=== PATIENT | male | born 1945 | race Caucasian/White ===

== ENCOUNTER 2017-08-06 19:42 | Observation (INO) | payer OTHER ==
[~2017-08-06] VITALS: Ht 185.4 cm; Wt 62.4 kg
[~2017-08-06 19:42] MED LIST: ALPR1TAB2 PO; AMIT50TA3 PO; BUPR300T54 PO; FENT-77 TD; HYDR-4064 PO; LOSA100T29 PO; TAMS0.4C32 PO
[2017-08-06] MEDS ORDERED: MEROPENEM 1 GM VIAL ONE (19:59)
[2017-08-06] MEDS ORDERED: DEXAMETHASONE SOD PHOSPHATE 10MG/ML 1ML VIAL ONE (20:00)
[2017-08-06] MEDS ORDERED: SODIUM CHLORIDE 0.9% 500ML 500 ML IV ONE (20:00)
[2017-08-06] MEDS ORDERED: IPRATROPIUM/ALBUTEROL SULFATE 3 ML SOLUTION IH ONE (20:30)
[2017-08-06 20:31] LABS: BASOPHILS % (AUTO) 0.8 % (0.0-5.0); EOSINOPHILS % (AUTO) 3.4 % (0.0-8.0); HEMATOCRIT 35.3 % (42-54); LYMPHOCYTES % (AUTO) 9.5 % (21.0-51.0); MEAN CORPUSCULAR HEMOGLOBIN 30.3 pg (27.0-33.0); MEAN CORPUSCULAR HGB CONC 34.5 g/dL (32.0-36.0); MEAN CORPUSCULAR VOLUME 87.7 fL (79-99); MONOCYTES % (AUTO) 5.4 % (3.0-13.0); NEUTROPHILS % (AUTO) 80.9 % (40.0-77.0); PLATELET COUNT (AUTO) 202 K/uL (130-400); RED BLOOD CELL COUNT(AUTO) 4.02 MIL/uL (4.50-6.20); WHITE BLOOD COUNT (AUTO) 10.7 K/uL (4.8-10.8)
[2017-08-06 20:40] LABS: CARBON DIOXIDE 30 mmol/L (21-32); CHLORIDE 104 mmol/L (101-111); CREATININE 1.4 mg/dL (0.5-1.5); GLOMERULAR FILTR. RATE CALC 53 mL/min (>60); GLUCOSE,RANDOM 115 mg/dL (70-105); SODIUM SERUM 141 mmol/L (136-145); UREA NITROGEN, BLOOD 15 mg/dL (7-18)
[2017-08-06 20:50] LABS: INR 0.95 (0.85-1.15); PARTIAL THROMBOPLASTIN TIME 27.8 SEC (26.3-35.5)
[2017-08-06 20:55] LABS: ALANINE AMINOTRANSFERASE 15 U/L (12-78); ALBUMIN 3.3 g/dL (3.5-5.0); ASPARTATE AMINOTRANSFERASE 11 U/L (10-37); BILIRUBIN,TOTAL 0.7 mg/dL (0.2-1.0); CREATINE KINASE MB < 0.5 ng/mL (0.5-3.6); CREATINE KINASE, TOTAL 31 U/L (21-232); MYOGLOBIN 52 ng/mL (10-92); TOTAL PROTEIN, SERUM 6.6 g/dL (6.0-8.3); TROPONIN I < 0.04 ng/mL (0.00-0.06)
[2017-08-06 21:30] LABS: APPEARANCE,URINE Clear (CLEAR); BILIRUBIN,URINE Negative (NEGATIVE); COLOR,URINE Yellow (YELLOW); GLUCOSE, URINE (UA) Negative (NEGATIVE); KETONES,URINE Trace mg/dL (NEGATIVE); LEUKOCYTE ESTERASE ,URINE Negative (NEGATIVE); NITRATE,URINE Negative (NEGATIVE); OCCULT BLOOD,URINE Negative (NEGATIVE); PH,URINE 6.5 (5.0-8.0); PROTEIN,URINE Negative (NEGATIVE)
[2017-08-06 21:45] LABS: BACTERIA,URINE Rare /HPF (None Seen); RBC,URINE 0-1 /HPF (0-1); SQUAMOUS EPITHELIAL CELL,UR Rare /LPF (0-2); WBC,URINE 0-1 /HPF (0-1)
[2017-08-06] MEDS ORDERED: METHYLPREDNISOLONE SOD SUCC 40MG/ML 1ML ONE (23:36)
[2017-08-06] MEDS ORDERED: LEVOFLOXACIN 500 MG/D5W 100 ML 100 ML ONE (23:36)
[2017-08-07] MEDS ORDERED: POTASSIUM CHLORIDE 20MEQ/100ML 100 ML IV PRN ×2 (01:45→07:15)
[2017-08-07] MEDS ORDERED: ACETAMINOPHEN 325 MG TAB PO PRN ×3 (01:45→07:15)
[2017-08-07] MEDS ORDERED: ONDANSETRON HCL 4 MG/2 ML VIAL IVP PRN (01:45)
[2017-08-07] MEDS ORDERED: POTASSIUM CHLORIDE 10% ELIXIR 20 MEQ/15 ML UDCUP PO PRN ×2 (01:45→07:15)
[2017-08-07] MEDS ORDERED: LIDOCAINE HCL-MPF 1% 2ML VIAL IVP PRN (01:45)
[2017-08-07] MEDS ORDERED: POTASSIUM CHLORIDE 20 MEQ ERTAB PO PRN ×2 (01:45→07:15)
[2017-08-07] MEDS ORDERED: HYDRALAZINE HCL 20 MG/ML VIAL IV PRN (01:45)
[2017-08-07] MEDS: LEVOFLOXACIN 500 MG/D5W 100 ML 100 ML IV SCH (01:45)
[2017-08-07] MEDS ORDERED: LACTULOSE 20 GM/30 ML UDCUP PO PRN (01:45)
[2017-08-07] MEDS ORDERED: CLONIDINE HCL 0.1 MG TABLET PO PRN ×2 (01:45→07:15)
[2017-08-07 05:58] LABS: BASOPHILS % (AUTO) 0.2 % (0.0-5.0); HEMATOCRIT 35.9 % (42-54); LYMPHOCYTES % (AUTO) 11.1 % (21.0-51.0); MEAN CORPUSCULAR HEMOGLOBIN 29.2 pg (27.0-33.0); MEAN CORPUSCULAR HGB CONC 33.4 g/dL (32.0-36.0); MEAN CORPUSCULAR VOLUME 87.4 fL (79-99); MONOCYTES % (AUTO) 1.1 % (3.0-13.0); NEUTROPHILS % (AUTO) 87.6 % (40.0-77.0); PLATELET COUNT (AUTO) 197 K/uL (130-400); RED BLOOD CELL COUNT(AUTO) 4.11 MIL/uL (4.50-6.20); RED CELL DISTRIBUTION WIDTH 14.7 % (11.0-15.5)
[2017-08-07 06:04] LABS: CREATININE 1.3 mg/dL (0.5-1.5); POTASSIUM 4.6 mmol/L (3.5-5.1)
[2017-08-07] MEDS ORDERED: LIDOCAINE HCL-MPF 1% 2ML VIAL IJ PRN (07:15)
[2017-08-07] MEDS ORDERED: GUAIFENESIN-DM 200/20 MG 10 ML PO PRN (07:15)
[2017-08-07] MEDS ORDERED: SODIUM CHLORIDE 0.9% 10 ML VIAL IVP PRN (07:30)
[2017-08-07 09:30] VITALS: BP 90/56
[2017-08-07] MEDS: IPRATROPIUM/ALBUTEROL SULFATE 3 ML SOLUTION IH SCH ×3 (09:37→21:59)
[2017-08-07] MEDS: FAMOTIDINE 20MG TAB 20 MG TAB PO SCH ×2 (10:32→21:00)
[2017-08-07] MEDS: METHYLPREDNISOLONE SOD SUCC 125MG/2ML VIAL IVP SCH ×2 (10:32→20:58)
[2017-08-07 11:00] VITALS: BP 104/56
[2017-08-07] MEDS ORDERED: FENTANYL 50 MCG/HR PATCH TD SCH (14:45)
[2017-08-07] MEDS ORDERED: ALPRAZOLAM 1 MG TAB PO PRN (14:45)
[2017-08-07] MEDS ORDERED: HYDROCODONE/ACETAMINOPHEN 10/325 MG TAB PO PRN (14:45)
[2017-08-07] MEDS ORDERED: BENZONATATE 100 MG CAPSULE PO PRN (14:45)
[2017-08-07] MEDS ORDERED: HYDR-4068 PO (15:03)
[2017-08-07] MEDS ORDERED: THEO400T3 PO (15:03)
[2017-08-07] MEDS ORDERED: BENZ200C53 PO (15:03)
[2017-08-07] MEDS ORDERED: METO25TA6 PO (15:03)
[2017-08-07] MEDS ORDERED: IPRATROPIUM (15:11)
[2017-08-07] MEDS ORDERED: ALBUTEROL (15:11)
[2017-08-07 16:00] VITALS: BP 94/53
[2017-08-07 19:59] VITALS: BP 116/59
[2017-08-07] MEDS ORDERED: AMITRIPTYLINE HCL 25 MG TABLET PO SCH (21:00)
[2017-08-07] MEDS ORDERED: THEOPHYLLINE ANHYDROUS 400 MG PO SCH (21:00)
[2017-08-07] MEDS ORDERED: BUPROPION HCL 150 MG TABLET.SA PO SCH (21:00)
[2017-08-07] MEDS ORDERED: TAMSULOSIN HCL 0.4 MG CAP.ER.24H PO SCH (21:00)
[2017-08-07] MEDS: METOPROLOL TARTRATE 25 MG TAB PO SCH (21:00)
[2017-08-07 23:37] VITALS: BP 105/63
[2017-08-08] MEDS: LEVOFLOXACIN 500 MG/D5W 100 ML 100 ML IV SCH ×2 (01:30→10:39)
[2017-08-08] MEDS: IPRATROPIUM/ALBUTEROL SULFATE 3 ML SOLUTION IH SCH ×3 (02:39→10:32)
[2017-08-08 04:00] VITALS: BP 101/63
[2017-08-08 05:09] LABS: HEMATOCRIT 32.5 % (42-54); LYMPHOCYTES % (AUTO) 6.9 % (21.0-51.0); MEAN CORPUSCULAR HEMOGLOBIN 29.4 pg (27.0-33.0); MEAN CORPUSCULAR HGB CONC 33.8 g/dL (32.0-36.0); MEAN CORPUSCULAR VOLUME 86.8 fL (79-99); MONOCYTES % (AUTO) 2.4 % (3.0-13.0); NEUTROPHILS % (AUTO) 90.7 % (40.0-77.0); PLATELET COUNT (AUTO) 223 K/uL (130-400); RED BLOOD CELL COUNT(AUTO) 3.74 MIL/uL (4.50-6.20); RED CELL DISTRIBUTION WIDTH 14.7 % (11.0-15.5); WHITE BLOOD COUNT (AUTO) 11.9 K/uL (4.8-10.8)
[2017-08-08 05:23] LABS: CREATININE 1.3 mg/dL (0.5-1.5); POTASSIUM 3.7 mmol/L (3.5-5.1)
[2017-08-08 08:00] VITALS: BP 119/72
[2017-08-08] MEDS: METHYLPREDNISOLONE SOD SUCC 125MG/2ML VIAL IVP SCH (09:00)
[2017-08-08] MEDS ORDERED: LOSARTAN 100 MG TABLET PO SCH (09:00)
[2017-08-08] MEDS: METOPROLOL TARTRATE 25 MG TAB PO SCH (10:42)
[2017-08-08] MEDS: FAMOTIDINE 20MG TAB 20 MG TAB PO SCH (10:42)
== END 2017-08-08 12:04 | disposition home or self-care (01) ==
LOC: EDH 19:42 → EDHIP 21:55 → 4CH 08-07 08:10
PROVIDERS: ADMIT Family Medicine; ATTEND Family Medicine
DX: J44.1 Chronic obstructive pulmonary disease with (acute) exacerbation (principal); G89.29 Other chronic pain; I10 Essential (primary) hypertension; I25.10 Atherosclerotic heart disease of native coronary artery without angina pectoris; F41.9 Anxiety disorder, unspecified; M19.90 Unspecified osteoarthritis, unspecified site; J96.01 Acute respiratory failure with hypoxia; F10.20 Alcohol dependence, uncomplicated; Z87.891 Personal history of nicotine dependence; J47.9 Bronchiectasis, uncomplicated; M54.9 Dorsalgia, unspecified
CPT/HCPCS: 36415 ×3; 71250; 80048 ×2; 80053; 81001; 82550; 82553; 83605; 83874; 84484; 85025 ×3; 85610; 85730; 87040; 87088; 87804 ×2; 93005; 94640 ×6; 94664; 96365; 96375; 96376; 99285; G0378 ×38; J1100; J1956 ×2; J2185; J2920; J2930 ×3; J7040

== ENCOUNTER 2017-08-23 18:15 | Emergency (ER) | payer OTHER ==
[~2017-08-23 18:15] MED LIST changes: +ALBUTEROL; +BENZ200C53 PO; -HYDR-4064 PO; +HYDR-4068 PO; +IPRATROPIUM; +METO25TA6 PO; +THEO400T3 PO
[2017-08-23 18:51] LABS: BASOPHILS % (AUTO) 0.9 % (0.0-5.0); EOSINOPHILS % (AUTO) 3.5 % (0.0-8.0); HEMATOCRIT 33.6 % (42-54); MEAN CORPUSCULAR HEMOGLOBIN 29.7 pg (27.0-33.0); MEAN CORPUSCULAR HGB CONC 33.6 g/dL (32.0-36.0); MEAN CORPUSCULAR VOLUME 88.4 fL (79-99); MONOCYTES % (AUTO) 8.7 % (3.0-13.0); NEUTROPHILS % (AUTO) 63.9 % (40.0-77.0); PLATELET COUNT (AUTO) 228 K/uL (130-400); RED CELL DISTRIBUTION WIDTH 15.3 % (11.0-15.5)
[2017-08-23 19:05] LABS: CREATININE 1.1 mg/dL (0.5-1.5); POTASSIUM 4.3 mmol/L (3.5-5.1)
[2017-08-23 19:10] LABS: ALBUMIN 2.6 g/dL (3.5-5.0); B-TYPE NATRIURETIC PEPTIDE 23 pg/mL (0-100); BILIRUBIN,TOTAL 0.3 mg/dL (0.2-1.0); TOTAL PROTEIN, SERUM 5.9 g/dL (6.0-8.3)
[2017-08-23 19:24] LABS: INR 0.91 (0.85-1.15); PARTIAL THROMBOPLASTIN TIME 27.8 SEC (26.3-35.5); PROTHROMBIN TIME 9.6 SEC (9.6-11.6)
[2017-08-23 20:03] LABS: APPEARANCE,URINE Clear (CLEAR); BILIRUBIN,URINE Negative (NEGATIVE); COLOR,URINE Yellow (YELLOW); GLUCOSE, URINE (UA) Negative (NEGATIVE); KETONES,URINE Negative (NEGATIVE); LEUKOCYTE ESTERASE ,URINE Small (NEGATIVE); NITRATE,URINE Negative (NEGATIVE); OCCULT BLOOD,URINE Negative (NEGATIVE); PH,URINE 5.5 (5.0-8.0); PROTEIN,URINE Negative (NEGATIVE); UROBILINOGEN,URINE 0.2 mg/dL (0.2-1.0)
[2017-08-23 20:12] LABS: BACTERIA,URINE None Seen /HPF (None Seen); RBC,URINE None Seen /HPF (0-1); SQUAMOUS EPITHELIAL CELL,UR 0-2 /LPF (0-2)
== END 2017-08-23 20:57 | disposition home or self-care (01) ==
LOC: EDH 18:15
DX: K59.00 Constipation, unspecified (principal); J44.9 Chronic obstructive pulmonary disease, unspecified; I10 Essential (primary) hypertension; I25.10 Atherosclerotic heart disease of native coronary artery without angina pectoris; Z88.6 Allergy status to analgesic agent; Z88.4 Allergy status to anesthetic agent; Z79.899 Other long term (current) drug therapy; Z87.891 Personal history of nicotine dependence
CPT/HCPCS: 36415; 71045; 74176; 80053; 81001; 82150; 82550; 83690; 83880; 84484; 85025; 85610; 85730; 93005

== ENCOUNTER 2017-08-26 16:10 | Observation (INO) | payer OTHER ==
[~2017-08-26] VITALS: Ht 185.4 cm; Wt 63.8 kg
[2017-08-26 17:10] LABS: BASOPHILS % (AUTO) 0.9 % (0.0-5.0); EOSINOPHILS % (AUTO) 4.4 % (0.0-8.0); HEMATOCRIT 30.8 % (42-54); LYMPHOCYTES % (AUTO) 25.9 % (21.0-51.0); MEAN CORPUSCULAR HEMOGLOBIN 30.1 pg (27.0-33.0); MEAN CORPUSCULAR HGB CONC 34.5 g/dL (32.0-36.0); MEAN CORPUSCULAR VOLUME 87.2 fL (79-99); MONOCYTES % (AUTO) 9.3 % (3.0-13.0); NEUTROPHILS % (AUTO) 59.5 % (40.0-77.0); PLATELET COUNT (AUTO) 257 K/uL (130-400); RED BLOOD CELL COUNT(AUTO) 3.53 MIL/uL (4.50-6.20); RED CELL DISTRIBUTION WIDTH 15.3 % (11.0-15.5); WHITE BLOOD COUNT (AUTO) 6.5 K/uL (4.8-10.8)
[2017-08-26 17:21] LABS: CREATININE 1.3 mg/dL (0.5-1.5); POTASSIUM 4.3 mmol/L (3.5-5.1)
[2017-08-26 17:22] LABS: INR 0.94 (0.85-1.15); PROTHROMBIN TIME 9.9 SEC (9.6-11.6)
[2017-08-26 17:34] LABS: ALBUMIN 2.4 g/dL (3.5-5.0); BILIRUBIN,TOTAL 0.5 mg/dL (0.2-1.0); CREATINE KINASE MB 0.5 ng/mL (0.5-3.6); TOTAL PROTEIN, SERUM 5.8 g/dL (6.0-8.3)
[2017-08-26 17:36] LABS: B-TYPE NATRIURETIC PEPTIDE 14 pg/mL (0-100)
[2017-08-26 17:38] LABS: PARTIAL THROMBOPLASTIN TIME 29.6 SEC (26.3-35.5)
[2017-08-26] MEDS ORDERED: ALBUMIN (HUMAN) 25% 50 ML IV ONE (19:55)
[2017-08-26] MEDS ORDERED: SODIUM CHLORIDE 0.9% 500ML 500 ML IV ONE (19:55)
[2017-08-26 22:29] LABS: APPEARANCE,URINE Clear (CLEAR); BILIRUBIN,URINE Negative (NEGATIVE); COLOR,URINE Yellow (YELLOW); GLUCOSE, URINE (UA) Negative (NEGATIVE); KETONES,URINE Negative (NEGATIVE); LEUKOCYTE ESTERASE ,URINE Large (NEGATIVE); NITRATE,URINE Negative (NEGATIVE); OCCULT BLOOD,URINE Negative (NEGATIVE); PROTEIN,URINE Negative (NEGATIVE); UROBILINOGEN,URINE 0.2 mg/dL (0.2-1.0)
[2017-08-26 22:34] LABS: BACTERIA,URINE Rare /HPF (None Seen); RBC,URINE 0-1 /HPF (0-1)
[2017-08-26 22:35] LABS: SQUAMOUS EPITHELIAL CELL,UR Rare /LPF (0-2)
[2017-08-26] MEDS ORDERED: LIDOCAINE HCL-MPF 1% 2ML VIAL IVP PRN (22:45)
[2017-08-26] MEDS ORDERED: ONDANSETRON HCL 4 MG/2 ML VIAL IV PRN (22:45)
[2017-08-26] MEDS ORDERED: POTASSIUM CHLORIDE 20MEQ/100ML 100 ML IV PRN (22:45)
[2017-08-26] MEDS ORDERED: CEFTRIAXONE 1GM/D5W 50ML 50 ML IV SCH (22:45)
[2017-08-26] MEDS ORDERED: POTASSIUM CHLORIDE 10% ELIXIR 20 MEQ/15 ML UDCUP PO PRN (22:45)
[2017-08-26] MEDS ORDERED: ACETAMINOPHEN 325 MG TAB PO PRN ×2 (22:45)
[2017-08-26] MEDS ORDERED: POTASSIUM CHLORIDE 20 MEQ ERTAB PO PRN (22:45)
[2017-08-26] MEDS ORDERED: GUAIFENESIN-DM 200/20 MG 10 ML PO PRN (22:45)
[2017-08-26] MEDS ORDERED: KETOROLAC TROMETHAMINE 15MG/ML IV PRN (22:45)
[2017-08-26] MEDS: CEFTRIAXONE SODIUM 1 GM IVP SCH (23:00)
[2017-08-26] MEDS ORDERED: SODIUM CHLORIDE 0.9% 50 ML IV ONE (23:03)
[2017-08-26] MEDS ORDERED: CEFTRIAXONE SODIUM 1 GM ONE (23:03)
[2017-08-27] VITALS: BP 92/59
[2017-08-27] MEDS ORDERED: ISOS30TA6 PO (00:46)
[2017-08-27] MEDS ORDERED: ALBUMIN (HUMAN) 25% 50 ML IV ONE (01:05)
[2017-08-27] MEDS: ALBUMIN (HUMAN) 25% 50 ML IV SCH ×2 (03:14→11:00)
[2017-08-27 04:00] VITALS: BP 96/61
[2017-08-27 05:29] LABS: MEAN CORPUSCULAR HEMOGLOBIN 29.2 pg (27.0-33.0); MEAN CORPUSCULAR HGB CONC 33.6 g/dL (32.0-36.0); MEAN CORPUSCULAR VOLUME 86.8 fL (79-99); PLATELET COUNT (AUTO) 221 K/uL (130-400); RED BLOOD CELL COUNT(AUTO) 3.34 MIL/uL (4.50-6.20); RED CELL DISTRIBUTION WIDTH 15.1 % (11.0-15.5); WHITE BLOOD COUNT (AUTO) 5.1 K/uL (4.8-10.8)
[2017-08-27 05:39] LABS: CREATININE 1.3 mg/dL (0.5-1.5); POTASSIUM 4.2 mmol/L (3.5-5.1)
[2017-08-27 08:00] VITALS: BP 89/48
[2017-08-27] MEDS: PANTOPRAZOLE SODIUM 40 MG TABLET.DR PO SCH (09:28)
[2017-08-27] MEDS: ENOXAPARIN SODIUM 40 MG/0.4 ML SYRINGE SQ SCH (09:29)
[2017-08-27] MEDS: SODIUM CHLORIDE 0.9% 1000ML 1,000 ML IV SCH ×2 (10:17→23:50)
[2017-08-27] MEDS ORDERED: FENTANYL 50 MCG/HR PATCH TD SCH (10:30)
[2017-08-27] MEDS ORDERED: BENZONATATE 100 MG CAPSULE PO PRN (10:30)
[2017-08-27] MEDS ORDERED: HYDROCODONE/ACETAMINOPHEN 10/325 MG TAB PO PRN (10:30)
[2017-08-27 12:00] VITALS: BP 102/62
[2017-08-27] MEDS: IPRATROPIUM/ALBUTEROL SULFATE 3 ML SOLUTION IH SCH ×2 (14:17→21:54)
[2017-08-27 16:00] VITALS: BP 104/66
[2017-08-27] MEDS: ALPRAZOLAM 1 MG TAB PO PRN ×2 (16:10→23:50)
[2017-08-27 20:00] VITALS: BP 121/72
[2017-08-27] MEDS ORDERED: AMITRIPTYLINE HCL 25 MG TABLET PO SCH (21:00)
[2017-08-27] MEDS ORDERED: THEOPHYLLINE ANHYDROUS 100 MG TAB.SR.12H PO SCH (21:00)
[2017-08-27] MEDS ORDERED: BUPROPION HCL 150 MG TABLET.SA PO SCH (21:00)
[2017-08-27] MEDS ORDERED: TAMSULOSIN HCL 0.4 MG CAP.ER.24H PO SCH (21:00)
[2017-08-27] MEDS: CEFTRIAXONE SODIUM 1 GM IVP SCH (23:11)
[2017-08-28] VITALS: BP 113/65
[2017-08-28 04:00] VITALS: BP 114/57
[2017-08-28 05:36] LABS: CREATININE 1.2 mg/dL (0.5-1.5); POTASSIUM 3.8 mmol/L (3.5-5.1)
[2017-08-28] MEDS: IPRATROPIUM/ALBUTEROL SULFATE 3 ML SOLUTION IH SCH (07:08)
[2017-08-28 08:00] VITALS: BP 124/74
[2017-08-28] MEDS ORDERED: ISOSORBIDE MONO 30MG TAB SR PO SCH (09:00)
[2017-08-28] MEDS: PANTOPRAZOLE SODIUM 40 MG TABLET.DR PO SCH (11:00)
[2017-08-28] MEDS: ENOXAPARIN SODIUM 40 MG/0.4 ML SYRINGE SQ SCH (11:00)
[2017-08-28 11:52] VITALS: BP 115/66
== END 2017-08-28 14:20 | disposition home or self-care (01) ==
LOC: EDH 16:10 → EDHIP 19:50 → 4CH 22:31
PROVIDERS: ADMIT Internal Medicine; ATTEND Internal Medicine
DX: R41.82 Altered mental status, unspecified (principal); N39.0 Urinary tract infection, site not specified; G89.29 Other chronic pain; M54.9 Dorsalgia, unspecified; I10 Essential (primary) hypertension; J44.9 Chronic obstructive pulmonary disease, unspecified; E44.0 Moderate protein-calorie malnutrition; F32.9 Major depressive disorder, single episode, unspecified; G62.9 Polyneuropathy, unspecified; Z87.891 Personal history of nicotine dependence
CPT/HCPCS: 36415 ×3; 71045; 74176; 80048 ×2; 80053; 81001; 82550; 82553; 83874; 83880; 84484; 85025; 85027; 85378; 85610; 85730; 87088; 93005; 93970; 94640 ×3; 94664; 96361; 96365; 96366; 96372 ×2; 96375; 97116; 97161; 99291; A4218; G0378 ×42; G8978; G8979; G8980; G8981; G8982; G8983; J0696 ×3; J1650 ×2; J7030 ×2; J7040; P9047 ×4

== ENCOUNTER 2017-10-19 06:30 | Observation (INO) | payer OTHER ==
[~2017-10-19 06:30] MED LIST changes: +ISOS30TA6 PO
[2017-10-19] MEDS ORDERED: ASPIRIN 325 MG TABLET ONE (06:49)
[2017-10-19 07:16] LABS: INR 0.95 (0.85-1.15); PARTIAL THROMBOPLASTIN TIME 25.7 SEC (26.3-35.5)
[2017-10-19 07:17] LABS: CREATININE 1.4 mg/dL (0.5-1.5)
[2017-10-19 07:21] LABS: BASOPHILS % (AUTO) 0.3 % (0.0-5.0); EOSINOPHILS % (AUTO) 1.9 % (0.0-8.0); HEMATOCRIT 39.4 % (42-54); LYMPHOCYTES % (AUTO) 8.9 % (21.0-51.0); MEAN CORPUSCULAR HEMOGLOBIN 29.8 pg (27.0-33.0); MEAN CORPUSCULAR HGB CONC 34.9 g/dL (32.0-36.0); MEAN CORPUSCULAR VOLUME 85.5 fL (79-99); MONOCYTES % (AUTO) 4.8 % (3.0-13.0); NEUTROPHILS % (AUTO) 84.1 % (40.0-77.0); PLATELET COUNT (AUTO) 160 K/uL (130-400); RED BLOOD CELL COUNT(AUTO) 4.61 MIL/uL (4.50-6.20); RED CELL DISTRIBUTION WIDTH 15.1 % (11.0-15.5); WHITE BLOOD COUNT (AUTO) 11.9 K/uL (4.8-10.8)
[2017-10-19 07:30] LABS: ALBUMIN 3.5 g/dL (3.5-5.0); BILIRUBIN,TOTAL 0.8 mg/dL (0.2-1.0); CREATINE KINASE MB 0.5 ng/mL (0.5-3.6); TOTAL PROTEIN, SERUM 6.6 g/dL (6.0-8.3)
[2017-10-19 07:32] LABS: APPEARANCE,URINE Clear (CLEAR); BILIRUBIN,URINE Negative (NEGATIVE); COLOR,URINE Yellow (YELLOW); GLUCOSE, URINE (UA) Negative (NEGATIVE); KETONES,URINE Trace mg/dL (NEGATIVE); LEUKOCYTE ESTERASE ,URINE Negative (NEGATIVE); NITRATE,URINE Negative (NEGATIVE); OCCULT BLOOD,URINE Negative (NEGATIVE); PH,URINE 8.5 (5.0-8.0); PROTEIN,URINE Negative (NEGATIVE); UROBILINOGEN,URINE 0.2 mg/dL (0.2-1.0)
[2017-10-19] MEDS ORDERED: ACETAMINOPHEN 325 MG TAB ONE (07:42)
[2017-10-19 07:48] LABS: BACTERIA,URINE Rare /HPF (None Seen); SQUAMOUS EPITHELIAL CELL,UR Rare /HPF (0-2); WBC,URINE 0-1 /HPF (0-1)
[2017-10-19] MEDS ORDERED: CEFTRIAXONE SODIUM 1 GM ONE (09:10)
[2017-10-19] MEDS ORDERED: AZITHROMYCIN 250 MG TABLET PO ONE (09:11)
== END 2017-10-19 09:48 | disposition left against medical advice (07) ==
LOC: EDH 06:30 → EDHIP 09:31
PROVIDERS: ADMIT Internal Medicine Pulmonary Disease; ATTEND Internal Medicine Pulmonary Disease
DX: R07.89 Other chest pain (principal); J44.9 Chronic obstructive pulmonary disease, unspecified; I25.10 Atherosclerotic heart disease of native coronary artery without angina pectoris; I10 Essential (primary) hypertension; F41.9 Anxiety disorder, unspecified; Z88.2 Allergy status to sulfonamides; Z88.5 Allergy status to narcotic agent
CPT/HCPCS: 36415; 71045; 80053; 81001; 82550; 82553; 83605; 84484; 85025; 85610; 85730; 87040 ×2; 87804 ×2; 87880; 93005; 99285; G0378; J0696

== ENCOUNTER 2017-10-20 21:01 | Inpatient (IN) | payer OTHER ==
[~2017-10-20] VITALS: Ht 185.4 cm; Wt 59.8 kg
[2017-10-20 22:08] LABS: BASOPHILS % (AUTO) 0.6 % (0.0-5.0); EOSINOPHILS % (AUTO) 2.5 % (0.0-8.0); HEMATOCRIT 39.1 % (42-54); LYMPHOCYTES % (AUTO) 12.3 % (21.0-51.0); MEAN CORPUSCULAR HEMOGLOBIN 29.1 pg (27.0-33.0); MEAN CORPUSCULAR HGB CONC 33.3 g/dL (32.0-36.0); MEAN CORPUSCULAR VOLUME 87.3 fL (79-99); NEUTROPHILS % (AUTO) 77.6 % (40.0-77.0); PLATELET COUNT (AUTO) 172 K/uL (130-400); RED BLOOD CELL COUNT(AUTO) 4.47 MIL/uL (4.50-6.20); RED CELL DISTRIBUTION WIDTH 15.4 % (11.0-15.5); WHITE BLOOD COUNT (AUTO) 9.9 K/uL (4.8-10.8)
[2017-10-20 22:33] LABS: ALBUMIN 2.9 g/dL (3.5-5.0); BILIRUBIN,TOTAL 0.5 mg/dL (0.2-1.0); CREATININE 1.3 mg/dL (0.5-1.5); TOTAL PROTEIN, SERUM 6.5 g/dL (6.0-8.3)
[2017-10-21] MEDS ORDERED: METHYLPREDNISOLONE SOD SUCC 125MG/2ML VIAL ONE (00:18)
[2017-10-21] MEDS ORDERED: LEVOFLOXACIN 750 MG/D5W 150 ML 150 ML ONE (00:51)
[2017-10-21] MEDS ORDERED: LEVOFLOXACIN 500 MG/D5W 100 ML 100 ML ONE (00:56)
[2017-10-21 01:14] LABS: ABG BASE EXCESS 0.6 mmol/L (-2.0-3.0); ABG HCO3 23.9 mmol/L (21.0-28.0); ABG OXYGEN SATURATION 95.7 % (95.0-99.0); ABG PCO2 35 mmHg (35-48)
[2017-10-21] MEDS ORDERED: IPRATROPIUM/ALBUTEROL SULFATE 3 ML SOLUTION IH ONE (01:25)
[2017-10-21 02:21] VITALS: BP 123/69
[2017-10-21] MEDS ORDERED: IOPAMIDOL-370 75 ML VIAL IV ONE (02:45)
[2017-10-21] MEDS ORDERED: SODIUM CHLORIDE 0.9% 1000ML 1,000 ML IV ONE (03:40)
[2017-10-21] MEDS: SODIUM CHLORIDE 0.9% 1000ML 1,000 ML IV SCH ×2 (03:45→20:56)
[2017-10-21 03:52] LABS: APPEARANCE,URINE Clear (CLEAR); BILIRUBIN,URINE Negative (NEGATIVE); COLOR,URINE Yellow (YELLOW); GLUCOSE, URINE (UA) Negative (NEGATIVE); KETONES,URINE Trace mg/dL (NEGATIVE); LEUKOCYTE ESTERASE ,URINE Negative (NEGATIVE); NITRATE,URINE Negative (NEGATIVE); OCCULT BLOOD,URINE Nonhemolyzed Trace (NEGATIVE); PROTEIN,URINE POS 1+ (NEGATIVE)
[2017-10-21 04:05] LABS: BACTERIA,URINE None Seen /HPF (None Seen); MUCUS,URINE Rare LPF (None Seen); RBC,URINE 0-1 /HPF (0-1); SQUAMOUS EPITHELIAL CELL,UR Rare /HPF (0-2); WBC,URINE None Seen /HPF (0-1)
[2017-10-21 05:37] LABS: HEMATOCRIT 36.2 % (42-54); MEAN CORPUSCULAR HEMOGLOBIN 30.4 pg (27.0-33.0); MEAN CORPUSCULAR HGB CONC 35.1 g/dL (32.0-36.0); MEAN CORPUSCULAR VOLUME 86.6 fL (79-99); PLATELET COUNT (AUTO) 151 K/uL (130-400); RED BLOOD CELL COUNT(AUTO) 4.18 MIL/uL (4.50-6.20); RED CELL DISTRIBUTION WIDTH 15.1 % (11.0-15.5); WHITE BLOOD COUNT (AUTO) 6.7 K/uL (4.8-10.8)
[2017-10-21 05:45] LABS: CREATININE 1.1 mg/dL (0.5-1.5); POTASSIUM 4.7 mmol/L (3.5-5.1)
[2017-10-21] MEDS: IPRATROPIUM/ALBUTEROL SULFATE 3 ML SOLUTION IH SCH ×4 (06:00→22:48)
[2017-10-21] MEDS: BUDESONIDE 0.5 MG/2 ML INH IH SCH ×2 (06:00→19:58)
[2017-10-21 07:44] VITALS: BP 122/71
[2017-10-21] MEDS: METHYLPREDNISOLONE SOD SUCC 40MG/ML 1ML IVP SCH ×2 (08:55→20:55)
[2017-10-21] MEDS: PANTOPRAZOLE SODIUM 40 MG TABLET.DR PO SCH (08:55)
[2017-10-21] MEDS: ENOXAPARIN SODIUM 40 MG/0.4 ML SYRINGE SQ SCH (09:04)
[2017-10-21 11:57] VITALS: BP 102/66
[2017-10-21 16:00] VITALS: BP 116/75
[2017-10-21 19:16] VITALS: BP 118/74
[2017-10-21] MEDS ORDERED: BUDE10.2 IH (21:07)
[2017-10-21 23:31] VITALS: BP 108/77
[2017-10-22] MEDS: LEVOFLOXACIN 500 MG/D5W 100 ML 100 ML IV SCH ×2 (01:33→23:35)
[2017-10-22] MEDS: IPRATROPIUM/ALBUTEROL SULFATE 3 ML SOLUTION IH SCH ×6 (02:23→21:54)
[2017-10-22 03:12] VITALS: BP 111/71
[2017-10-22] MEDS: BUDESONIDE 0.5 MG/2 ML INH IH SCH ×2 (06:20→18:15)
[2017-10-22 08:00] VITALS: BP 108/59
[2017-10-22] MEDS: ENOXAPARIN SODIUM 40 MG/0.4 ML SYRINGE SQ SCH (09:19)
[2017-10-22] MEDS: PANTOPRAZOLE SODIUM 40 MG TABLET.DR PO SCH (09:19)
[2017-10-22] MEDS: METHYLPREDNISOLONE SOD SUCC 40MG/ML 1ML IVP SCH ×2 (09:19→20:59)
[2017-10-22 12:00] VITALS: BP 120/63
[2017-10-22] MEDS: FENTANYL 50 MCG/HR PATCH TD SCH (13:30)
[2017-10-22] MEDS: ZOSYN 3.375GM+NS 50ML 50 ML IV SCH ×2 (13:37→21:00)
[2017-10-22 16:00] VITALS: BP 118/68
[2017-10-22] MEDS: SODIUM CHLORIDE 0.9% 1000ML 1,000 ML IV SCH (16:11)
[2017-10-22 19:00] VITALS: BP 120/62
[2017-10-22] MEDS: BUPROPION HCL 150 MG TABLET.SA PO SCH (20:59)
[2017-10-22] MEDS: AMITRIPTYLINE HCL 25 MG TABLET PO SCH (21:00)
[2017-10-22 23:00] VITALS: BP 118/72
[2017-10-23] MEDS: IPRATROPIUM/ALBUTEROL SULFATE 3 ML SOLUTION IH SCH ×5 (02:09→23:21)
[2017-10-23 03:00] VITALS: BP 119/56
[2017-10-23] MEDS: ZOSYN 3.375GM+NS 50ML 50 ML IV SCH ×3 (04:55→20:48)
[2017-10-23] MEDS: SODIUM CHLORIDE 0.9% 1000ML 1,000 ML IV SCH (04:56)
[2017-10-23] MEDS: BUDESONIDE 0.5 MG/2 ML INH IH SCH ×2 (06:11→18:35)
[2017-10-23 08:00] VITALS: BP 122/78
[2017-10-23] MEDS: PANTOPRAZOLE SODIUM 40 MG TABLET.DR PO SCH (09:04)
[2017-10-23] MEDS: METHYLPREDNISOLONE SOD SUCC 40MG/ML 1ML IVP SCH ×2 (09:05→20:51)
[2017-10-23] MEDS: ISOSORBIDE MONO 30MG TAB SR PO SCH (09:05)
[2017-10-23] MEDS: ENOXAPARIN SODIUM 40 MG/0.4 ML SYRINGE SQ SCH (09:05)
[2017-10-23 11:00] VITALS: BP 112/72
[2017-10-23 16:00] VITALS: BP 108/80
[2017-10-23 19:00] VITALS: BP 113/77
[2017-10-23] MEDS: BUPROPION HCL 150 MG TABLET.SA PO SCH (20:53)
[2017-10-23] MEDS: AMITRIPTYLINE HCL 25 MG TABLET PO SCH (20:53)
[2017-10-23] MEDS: FENTANYL 50 MCG/HR PATCH TD SCH (22:41)
[2017-10-24] VITALS: BP 127/75
[2017-10-24] MEDS: SODIUM CHLORIDE 0.9% 1000ML 1,000 ML IV SCH ×2 (00:53→11:45)
[2017-10-24] MEDS: LEVOFLOXACIN 500 MG/D5W 100 ML 100 ML IV SCH (01:15)
[2017-10-24 04:00] VITALS: BP 130/89
[2017-10-24 04:12] LABS: HEMATOCRIT 32.4 % (42-54); MEAN CORPUSCULAR HEMOGLOBIN 30.5 pg (27.0-33.0); MEAN CORPUSCULAR HGB CONC 35.4 g/dL (32.0-36.0); MEAN CORPUSCULAR VOLUME 86.2 fL (79-99); NUCLEATED RED BLOOD CELLS 0.1 % (0.0-0.19); PLATELET COUNT (AUTO) 213 K/uL (130-400); RED BLOOD CELL COUNT(AUTO) 3.76 MIL/uL (4.50-6.20); RED CELL DISTRIBUTION WIDTH 15.3 % (11.0-15.5)
[2017-10-24 04:15] LABS: CREATININE 1.3 mg/dL (0.5-1.5); POTASSIUM 4.6 mmol/L (3.5-5.1)
[2017-10-24] MEDS: ZOSYN 3.375GM+NS 50ML 50 ML IV SCH ×3 (05:18→21:44)
[2017-10-24] MEDS: BUDESONIDE 0.5 MG/2 ML INH IH SCH ×2 (06:49→17:50)
[2017-10-24] MEDS: IPRATROPIUM/ALBUTEROL SULFATE 3 ML SOLUTION IH SCH ×4 (06:49→23:46)
[2017-10-24 08:00] VITALS: BP 138/83
[2017-10-24] MEDS: ISOSORBIDE MONO 30MG TAB SR PO SCH (09:18)
[2017-10-24] MEDS: PANTOPRAZOLE SODIUM 40 MG TABLET.DR PO SCH (09:18)
[2017-10-24] MEDS: METHYLPREDNISOLONE SOD SUCC 40MG/ML 1ML IVP SCH ×2 (09:18→21:44)
[2017-10-24] MEDS: ENOXAPARIN SODIUM 40 MG/0.4 ML SYRINGE SQ SCH (09:19)
[2017-10-24 11:00] VITALS: BP 127/75
[2017-10-24 16:00] VITALS: BP 116/72
[2017-10-24 20:00] VITALS: BP 126/79
[2017-10-24] MEDS: AMITRIPTYLINE HCL 25 MG TABLET PO SCH (21:46)
[2017-10-24] MEDS: BUPROPION HCL 150 MG TABLET.SA PO SCH (21:46)
[2017-10-25] VITALS: BP 134/75
[2017-10-25] MEDS: LEVOFLOXACIN 500 MG/D5W 100 ML 100 ML IV SCH (00:57)
[2017-10-25] MEDS: SODIUM CHLORIDE 0.9% 1000ML 1,000 ML IV SCH ×2 (01:05→14:25)
[2017-10-25 04:00] VITALS: BP 123/82
[2017-10-25 04:02] LABS: HEMATOCRIT 33.6 % (42-54); MEAN CORPUSCULAR HEMOGLOBIN 29.4 pg (27.0-33.0); MEAN CORPUSCULAR HGB CONC 34.2 g/dL (32.0-36.0); PLATELET COUNT (AUTO) 222 K/uL (130-400); RED BLOOD CELL COUNT(AUTO) 3.91 MIL/uL (4.50-6.20); RED CELL DISTRIBUTION WIDTH 15.2 % (11.0-15.5); WHITE BLOOD COUNT (AUTO) 9.6 K/uL (4.8-10.8)
[2017-10-25 04:18] LABS: CREATININE 1.2 mg/dL (0.5-1.5); POTASSIUM 4.4 mmol/L (3.5-5.1)
[2017-10-25] MEDS: IPRATROPIUM/ALBUTEROL SULFATE 3 ML SOLUTION IH SCH ×2 (06:34→10:56)
[2017-10-25] MEDS: BUDESONIDE 0.5 MG/2 ML INH IH SCH (06:34)
[2017-10-25] MEDS: ZOSYN 3.375GM+NS 50ML 50 ML IV SCH ×2 (06:36→13:07)
[2017-10-25] MEDS: ISOSORBIDE MONO 30MG TAB SR PO SCH (08:27)
[2017-10-25] MEDS: METHYLPREDNISOLONE SOD SUCC 40MG/ML 1ML IVP SCH (08:27)
[2017-10-25] MEDS: PANTOPRAZOLE SODIUM 40 MG TABLET.DR PO SCH (08:27)
[2017-10-25] MEDS: ENOXAPARIN SODIUM 40 MG/0.4 ML SYRINGE SQ SCH (08:28)
[2017-10-25 08:56] VITALS: BP 151/104
[2017-10-25 12:37] VITALS: BP 134/82
[2017-10-25] MEDS: FENTANYL 50 MCG/HR PATCH TD SCH (13:30)
[2017-10-25] MEDS ORDERED: LEVO500T2 PO (13:38)
== END 2017-10-25 14:20 | disposition home or self-care (01) | DRG 178 ==
LOC: EDH 21:01 → EDHIP 10-21 00:57 → OBSVTOIN 10-21 00:57 → 3AH 10-21 01:41
PROVIDERS: ADMIT Internal Medicine; ATTEND Internal Medicine
DX: J69.0 Pneumonitis due to inhalation of food and vomit (principal); J44.1 Chronic obstructive pulmonary disease with (acute) exacerbation; E46 Unspecified protein-calorie malnutrition; Z68.1 Body mass index [BMI] 19.9 or less, adult; J44.0 Chronic obstructive pulmonary disease with (acute) lower respiratory infection; J18.9 Pneumonia, unspecified organism; F32.9 Major depressive disorder, single episode, unspecified; I10 Essential (primary) hypertension; Z85.118 Personal history of other malignant neoplasm of bronchus and lung; G89.29 Other chronic pain; M54.9 Dorsalgia, unspecified; F41.9 Anxiety disorder, unspecified; I25.10 Atherosclerotic heart disease of native coronary artery without angina pectoris; Z72.0 Tobacco use; Z88.8 Allergy status to other drugs, medicaments and biological substances; Z88.1 Allergy status to other antibiotic agents; Z87.01 Personal history of pneumonia (recurrent); Z88.5 Allergy status to narcotic agent
CPT/HCPCS: 36415; 36600; 70450; 71045; 71046; 71275; 74230; 80048; 80053; 81001; 82550; 82553; 82803; 83605; 84484; 85025; 85027; 85378; 85610; 85730; 87040; 87804; 87880; 92611; 93005; 94640; 94664; 94667; G0378; J0696; J1650; J1956; J2543; J2920; J2930; J7030; Q9967

== ENCOUNTER → 2019-04-02 | Outpatient (CLI) | payer OTHER ==
[~2019-04-02] MED LIST changes: -ALBUTEROL; -BENZ200C53 PO; +BUDE10.2 IH; -IPRATROPIUM; +LEVO500T2 PO; -LOSA100T29 PO; +LOSA100T58 PO; -METO25TA6 PO; -TAMS0.4C32 PO; -THEO400T3 PO
== END | disposition home or self-care (01) ==
LOC: RAH 13:00
PROVIDERS: ATTEND Family Medicine
DX: R90.82 White matter disease, unspecified (principal); R29.6 Repeated falls
CPT/HCPCS: 70450

== ENCOUNTER 2020-07-06 10:37 | Inpatient (IN) | payer OTHER ==
[~2020-07-06] VITALS: Ht 185.4 cm; Wt 61.6 kg
[~2020-07-06 10:37] MED LIST changes: +BUPR-317 PO; -BUPR300T54 PO
[2020-07-06] MEDS ORDERED: HYDROCODONE/ACETAMINOPHEN 10/325 MG TAB ONE (10:57)
[2020-07-06 11:12] LABS: BASOPHILS % (AUTO) 0.5 % (0.0-5.0); EOSINOPHILS % (AUTO) 1.2 % (0.0-8.0); HEMATOCRIT 35.9 % (42-54); LYMPHOCYTES % (AUTO) 11.2 % (21.0-51.0); MEAN CORPUSCULAR HEMOGLOBIN 29.6 pg (27.0-33.0); MEAN CORPUSCULAR HGB CONC 32.9 g/dL (32.0-36.0); MEAN CORPUSCULAR VOLUME 90.2 fL (79-99); MONOCYTES % (AUTO) 5.9 % (3.0-13.0); NEUTROPHILS % (AUTO) 80.6 % (40.0-77.0); PLATELET COUNT (AUTO) 178 K/uL (130-400); RED BLOOD CELL COUNT(AUTO) 3.98 MIL/uL (4.50-6.20); RED CELL DISTRIBUTION WIDTH 12.6 % (11.0-15.5); WHITE BLOOD COUNT (AUTO) 14.3 K/uL (4.8-10.8)
[2020-07-06 11:44] LABS: CARBON DIOXIDE 28 mmol/L (21-32); CHLORIDE 107 mmol/L (101-111); CREATININE 1.3 mg/dL (0.5-1.5); GLOMERULAR FILTR. RATE CALC 57 mL/min (>60); GLUCOSE,RANDOM 136 mg/dL (70-105); POTASSIUM 4.7 mmol/L (3.5-5.1); SODIUM SERUM 143 mmol/L (136-145); UREA NITROGEN, BLOOD 24 mg/dL (7-18)
[2020-07-06 11:49] LABS: ALANINE AMINOTRANSFERASE 18 U/L (12-78); ALBUMIN 3.1 g/dL (3.5-5.0); ASPARTATE AMINOTRANSFERASE 17 U/L (10-37); BILIRUBIN,TOTAL 0.6 mg/dL (0.2-1.0); TOTAL PROTEIN, SERUM 5.5 g/dL (6.0-8.3)
[2020-07-06 11:51] LABS: LIPASE < 50 U/L (114-286)
[2020-07-06] MEDS ORDERED: IOHEXOL-350 75 ML VIAL IV ONE (13:32)
[2020-07-06] MEDS ORDERED: MORPHINE SULFATE 4 MG/1ML SYG IVP PRN (17:00)
[2020-07-06] MEDS ORDERED: ONDANSETRON HCL 4 MG/2 ML VIAL IVP PRN (17:15)
[2020-07-06 17:16] LABS: HEMATOCRIT 34.2 % (42-54)
[2020-07-06 18:18] VITALS: BP 126/84
[2020-07-06 19:00] VITALS: BP 128/81
[2020-07-06] MEDS: LACTATED RINGERS 1000ML 1,000 ML IV SCH (19:42)
[2020-07-06 20:00] VITALS: BP 126/76
[2020-07-06 21:00] VITALS: BP 154/98
[2020-07-06] MEDS ORDERED: FENTANYL 25 MCG/HR PATCH TD SCH (21:15)
[2020-07-06 22:00] VITALS: BP 127/85
[2020-07-06 23:00] VITALS: BP 133/85
[2020-07-07] VITALS (18 sets, daily range): BP systolic 120–156; BP diastolic 72–90
[2020-07-07 00:03] LABS: HEMATOCRIT 31.1 % (42-54)
[2020-07-07] MEDS: LACTATED RINGERS 1000ML 1,000 ML IV SCH (01:49)
[2020-07-07 05:59] LABS: HEMATOCRIT 30.6 % (42-54); MEAN CORPUSCULAR HEMOGLOBIN 29.1 pg (27.0-33.0); MEAN CORPUSCULAR HGB CONC 32.4 g/dL (32.0-36.0); PLATELET COUNT (AUTO) 134 K/uL (130-400); RED CELL DISTRIBUTION WIDTH 12.8 % (11.0-15.5); WHITE BLOOD COUNT (AUTO) 8.7 K/uL (4.8-10.8)
[2020-07-07 06:16] LABS: ALBUMIN 2.7 g/dL (3.5-5.0); CREATININE 1.1 mg/dL (0.5-1.5); POTASSIUM 4.7 mmol/L (3.5-5.1)
[2020-07-07] MEDS ORDERED: POTASSIUM CHLORIDE 20 MEQ ERTAB PO PRN (08:15)
[2020-07-07] MEDS ORDERED: POTASSIUM CHLORIDE 10% ELIXIR 20 MEQ/15 ML UDCUP PO PRN (08:15)
[2020-07-07] MEDS ORDERED: DEXTROSE 50%-WATER 50 ML DISP.SYRIN IV PRN (08:15)
[2020-07-07] MEDS ORDERED: ONDANSETRON HCL 4 MG/2 ML VIAL IVP PRN (08:15)
[2020-07-07] MEDS ORDERED: ACETAMINOPHEN 650 MG SUPPOSITORY RC PRN (08:15)
[2020-07-07] MEDS ORDERED: LIDOCAINE HCL-MPF 1% 2ML VIAL IV PRN ×2 (08:15)
[2020-07-07] MEDS ORDERED: POTASSIUM CHLORIDE 20MEQ/100ML 100 ML IV PRN ×2 (08:15)
[2020-07-07] MEDS: DEXTROSE 5%-LACTATED RINGERS 1,000 ML IV SCH ×2 (08:15→12:00)
[2020-07-07] MEDS ORDERED: GLUCAGON 1MG KIT 1 MG ML IM PRN (08:15)
[2020-07-07] MEDS ORDERED: LABETALOL 20 MG/4 ML DISP.SYRIN IV PRN (08:15)
[2020-07-07 08:45] LABS: CREATINE KINASE, TOTAL 33 U/L (21-232); MYOGLOBIN 120 ng/mL (10-92); TROPONIN I < 0.04 ng/mL (0.00-0.06)
[2020-07-07 08:52] LABS: BAND NEUTROPHILS % (MANUAL) 1 % (0-2); BASOPHILS % (MANUAL) 1 % (0-2); LYMPHOCYTES % (MANUAL) 9 % (22-44); MAN.DIFF COMMENT-IMPRESSION MANUAL DIFFERENTIAL; SEGMENTED NEUTROPHILS % 89 % (40-70)
[2020-07-07 08:53] LABS: PLATELET MORPHOLOGY COMMENT SLIGHTLY DECREASED
[2020-07-07 10:25] LABS: HEMATOCRIT 30.8 % (42-54)
[2020-07-07 10:31] LABS: INR 1.04 (0.85-1.15); PROTHROMBIN TIME 11.1 SEC (9.6-11.6)
[2020-07-07] MEDS ORDERED: ALBU0.63 IH (11:37)
[2020-07-07] MEDS: MORPHINE SULFATE 2 MG/ML 1ML SYG IVP PRN ×3 (11:51→21:15)
[2020-07-07] MEDS: LORAZEPAM 2 MG/ML 1 ML VIAL IVP PRN (13:40)
[2020-07-07 15:26] LABS: CREATINE KINASE, TOTAL 42 U/L (21-232); MYOGLOBIN 128 ng/mL (10-92); TROPONIN I < 0.04 ng/mL (0.00-0.06)
[2020-07-07 20:44] LABS: CREATINE KINASE, TOTAL 42 U/L (21-232); MYOGLOBIN 107 ng/mL (10-92); TROPONIN I < 0.04 ng/mL (0.00-0.06)
[2020-07-08] MEDS: LORAZEPAM 2 MG/ML 1 ML VIAL IVP PRN (01:28)
[2020-07-08 03:00] VITALS: BP 132/77
[2020-07-08 03:42] LABS: HEMATOCRIT 30.6 % (42-54); MEAN CORPUSCULAR HEMOGLOBIN 28.8 pg (27.0-33.0); RED BLOOD CELL COUNT(AUTO) 3.4 MIL/uL (4.50-6.20); RED CELL DISTRIBUTION WIDTH 12.5 % (11.0-15.5); WHITE BLOOD COUNT (AUTO) 8.4 K/uL (4.8-10.8)
[2020-07-08 03:52] LABS: CREATININE 1.1 mg/dL (0.5-1.5); POTASSIUM 4.4 mmol/L (3.5-5.1)
[2020-07-08 07:49] VITALS: BP 136/86
[2020-07-08] MEDS ORDERED: POLY17PO4 PO (10:46)
[2020-07-08] MEDS ORDERED: POLYETHYLENE GLYCOL 3350 17 GM POWD.PACK PO PRN (11:00)
[2020-07-08 12:00] VITALS: BP 132/90
[2020-07-08] MEDS ORDERED: POLYETHYLENE GLYCOL 3350 17 GM POWD.PACK ONE (12:31)
[2020-07-08] MEDS: HYDROCODONE/ACETAMINOPHEN 10/325 MG TAB PO PRN ×2 (13:07→20:46)
[2020-07-08] MEDS: ALPRAZOLAM 1 MG TAB PO PRN ×2 (13:11→20:46)
[2020-07-08] MEDS: ALBUTEROL SULFATE 0.083% 2.5 MG/3 ML INH IH PRN ×2 (13:44→19:09)
[2020-07-08 16:00] VITALS: BP 120/77
[2020-07-08 20:22] VITALS: BP 104/63
[2020-07-08] MEDS ORDERED: AMITRIPTYLINE HCL 25 MG TABLET PO SCH (21:00)
[2020-07-08 23:50] VITALS: BP 123/62
[2020-07-09 04:00] VITALS: BP 134/71
[2020-07-09 05:30] LABS: BASOPHILS % (AUTO) 0.6 % (0.0-5.0); EOSINOPHILS % (AUTO) 8.7 % (0.0-8.0); HEMATOCRIT 28.1 % (42-54); MEAN CORPUSCULAR HEMOGLOBIN 28.8 pg (27.0-33.0); MEAN CORPUSCULAR HGB CONC 32.4 g/dL (32.0-36.0); MEAN CORPUSCULAR VOLUME 88.9 fL (79-99); MONOCYTES % (AUTO) 9.7 % (3.0-13.0); NEUTROPHILS % (AUTO) 55.7 % (40.0-77.0); PLATELET COUNT (AUTO) 113 K/uL (130-400); RED BLOOD CELL COUNT(AUTO) 3.16 MIL/uL (4.50-6.20); RED CELL DISTRIBUTION WIDTH 12.3 % (11.0-15.5); WHITE BLOOD COUNT (AUTO) 6.3 K/uL (4.8-10.8)
[2020-07-09 05:34] LABS: POTASSIUM 3.9 mmol/L (3.5-5.1)
[2020-07-09] MEDS: ALBUTEROL SULFATE 0.083% 2.5 MG/3 ML INH IH PRN (06:31)
[2020-07-09 08:00] VITALS: BP 137/80
[2020-07-09] MEDS: HYDROCODONE/ACETAMINOPHEN 10/325 MG TAB PO PRN (09:25)
[2020-07-09] MEDS: ALPRAZOLAM 1 MG TAB PO PRN (09:25)
[2020-07-09 12:01] VITALS: BP 114/72
== END 2020-07-09 17:45 | disposition home or self-care (01) | DRG 815 ==
LOC: EDH 10:37 → EDHIP 16:00 → 2DH 18:28 → 4DH 07-08 19:19
PROVIDERS: ADMIT Internal Medicine Critical Care Medicine; ATTEND Internal Medicine Critical Care Medicine
DX: S36.031A Moderate laceration of spleen, initial encounter (principal); D62 Acute posthemorrhagic anemia; S36.92XA Contusion of unspecified intra-abdominal organ, initial encounter; I10 Essential (primary) hypertension; I25.10 Atherosclerotic heart disease of native coronary artery without angina pectoris; R53.81 Other malaise; J44.9 Chronic obstructive pulmonary disease, unspecified; W18.30XA Fall on same level, unspecified, initial encounter; Y93.89 Activity, other specified; Y92.091 Bathroom in other non-institutional residence as the place of occurrence of the external cause; Y99.8 Other external cause status; Z88.5 Allergy status to narcotic agent; Z88.8 Allergy status to other drugs, medicaments and biological substances
CPT/HCPCS: 36415; 71045; 74177; 80048; 80053; 82550; 82948; 83690; 83874; 84484; 85014; 85018; 85025; 85027; 85610; 93005; 94640; 94664; 97039; G0378; J2060; J2405; J7070; J7120; Q9967

== ENCOUNTER 2020-07-14 11:14 | Inpatient (IN) | payer OTHER ==
[~2020-07-14] VITALS: Ht 185.4 cm; Wt 64.6 kg
[~2020-07-14 11:14] MED LIST changes: +ALBU0.63 IH; -ISOS30TA6 PO; +ISOS30TA92 PO; -LEVO500T2 PO; +POLY17PO4 PO
[2020-07-14] MEDS ORDERED: ONDANSETRON 4MG INJ ONE ×2 (12:13→19:56)
[2020-07-14] MEDS ORDERED: FENTANYL CITRATE PF 50 MCG/1 ML 2ML VIAL ONE ×2 (12:13→13:21)
[2020-07-14 12:22] LABS: BASOPHILS % (AUTO) 0.6 % (0.0-5.0); EOSINOPHILS % (AUTO) 2.5 % (0.0-8.0); HEMATOCRIT 34.2 % (42-54); LYMPHOCYTES % (AUTO) 10.2 % (21.0-51.0); MEAN CORPUSCULAR HEMOGLOBIN 29.9 pg (27.0-33.0); MEAN CORPUSCULAR HGB CONC 32.7 g/dL (32.0-36.0); MEAN CORPUSCULAR VOLUME 91.2 fL (79-99); MONOCYTES % (AUTO) 5.4 % (3.0-13.0); PLATELET COUNT (AUTO) 201 K/uL (130-400); RED BLOOD CELL COUNT(AUTO) 3.75 MIL/uL (4.50-6.20); RED CELL DISTRIBUTION WIDTH 13.6 % (11.0-15.5); WHITE BLOOD COUNT (AUTO) 10.2 K/uL (4.8-10.8)
[2020-07-14 12:38] LABS: CREATININE 1.1 mg/dL (0.5-1.5); POTASSIUM 4.2 mmol/L (3.5-5.1)
[2020-07-14 12:42] LABS: ALBUMIN 3.4 g/dL (3.5-5.0); BILIRUBIN,TOTAL 1.2 mg/dL (0.2-1.0); TOTAL PROTEIN, SERUM 6.5 g/dL (6.0-8.3)
[2020-07-14] MEDS ORDERED: IOHEXOL-350 75 ML VIAL IV ONE (12:47)
[2020-07-14 14:30] VITALS: BP 133/80
[2020-07-14] MEDS ORDERED: LIDOCAINE HCL-MPF 1% 2ML VIAL IV PRN (16:45)
[2020-07-14] MEDS ORDERED: KCL 20 MEQ ERTAB PO PRN (16:45)
[2020-07-14] MEDS ORDERED: FENTANYL 50 MCG/HR PATCH TD SCH (16:45)
[2020-07-14] MEDS ORDERED: LABETALOL 20MG SYG IV PRN (16:45)
[2020-07-14] MEDS ORDERED: HYDROMORPHONE 0.5 MG SYG (0.5MG/0.5ML) IVP PRN (16:45)
[2020-07-14] MEDS ORDERED: POTASSIUM CHLORIDE 10% ELIXIR 20 MEQ/15 ML UDCUP PO PRN (16:45)
[2020-07-14] MEDS ORDERED: POLYETHYLENE GLYCOL 3350 17 GM POWD.PACK PO PRN (16:45)
[2020-07-14] MEDS ORDERED: POTASSIUM CHLORIDE 20MEQ/100ML 100 ML IV PRN (16:45)
[2020-07-14] MEDS: FLUTICASONE/VILANTEROL 1 EACH BLST.W.DEV IH SCH (17:39)
[2020-07-14 17:40] LABS: BASOPHILS % (AUTO) 0.6 % (0.0-5.0); EOSINOPHILS % (AUTO) 0.6 % (0.0-8.0); HEMATOCRIT 31.8 % (42-54); LYMPHOCYTES % (AUTO) 8.9 % (21.0-51.0); MEAN CORPUSCULAR HEMOGLOBIN 29.7 pg (27.0-33.0); MEAN CORPUSCULAR HGB CONC 32.4 g/dL (32.0-36.0); MEAN CORPUSCULAR VOLUME 91.6 fL (79-99); MONOCYTES % (AUTO) 5.4 % (3.0-13.0); NEUTROPHILS % (AUTO) 83.9 % (40.0-77.0); PLATELET COUNT (AUTO) 184 K/uL (130-400); RED BLOOD CELL COUNT(AUTO) 3.47 MIL/uL (4.50-6.20); RED CELL DISTRIBUTION WIDTH 13.8 % (11.0-15.5); WHITE BLOOD COUNT (AUTO) 11.2 K/uL (4.8-10.8)
[2020-07-14] MEDS ORDERED: BUDESONIDE 0.5 MG/2 ML INH IH SCH (18:00)
[2020-07-14] MEDS ORDERED: ALBUTEROL 0.083% 2.5 MG/3 ML INH IH SCH (18:00)
[2020-07-14 18:23] LABS: APPEARANCE,URINE Clear (CLEAR); BILIRUBIN,URINE Negative (NEGATIVE); COLOR,URINE Yellow (YELLOW); GLUCOSE, URINE (UA) Negative (NEGATIVE); KETONES,URINE Negative (NEGATIVE); LEUKOCYTE ESTERASE ,URINE Negative (NEGATIVE); NITRATE,URINE Negative (NEGATIVE); OCCULT BLOOD,URINE Negative (NEGATIVE); PH,URINE 7.5 (5.0-8.0); PROTEIN,URINE Trace mg/dL (NEGATIVE)
[2020-07-14] MEDS ORDERED: 0.9%NACL 1000ML 1,000 ML IV ONE (18:46)
[2020-07-14 18:59] LABS: BACTERIA,URINE Rare /HPF (None Seen); RBC,URINE None Seen /HPF (0-1); SQUAMOUS EPITHELIAL CELL,UR None Seen /HPF (0-2); WBC,URINE 0-1 /HPF (0-1)
[2020-07-14] MEDS ORDERED: ALBUTEROL INHALER 90MCG/INH IH ONE (19:50)
[2020-07-14] MEDS ORDERED: ALPRAZOLAM 1 MG TAB ONE (19:51)
[2020-07-14] MEDS ORDERED: HYDROMORPHONE 0.5 MG SYG (0.5MG/0.5ML) ONE (19:56)
[2020-07-14] MEDS: AMITRIPTYLINE 25 MG TABLET PO SCH (21:00)
[2020-07-14] MEDS ORDERED: NON-FORMULARY MEDICATION 1 EACH (Albuterol Sulfate 0.63 MG) IH SCH (21:00)
[2020-07-14] MEDS: BUPROPION HCL 150 MG TABLET.SA PO SCH (21:00)
[2020-07-14 22:49] VITALS: BP 107/65
[2020-07-14 22:54] LABS: BASOPHILS % (AUTO) 0.6 % (0.0-5.0); EOSINOPHILS % (AUTO) 0.8 % (0.0-8.0); LYMPHOCYTES % (AUTO) 17.3 % (21.0-51.0); MEAN CORPUSCULAR HEMOGLOBIN 29.5 pg (27.0-33.0); MEAN CORPUSCULAR HGB CONC 32.1 g/dL (32.0-36.0); MEAN CORPUSCULAR VOLUME 92.1 fL (79-99); MONOCYTES % (AUTO) 7.5 % (3.0-13.0); NEUTROPHILS % (AUTO) 73.3 % (40.0-77.0); PLATELET COUNT (AUTO) 171 K/uL (130-400); RED BLOOD CELL COUNT(AUTO) 3.15 MIL/uL (4.50-6.20); RED CELL DISTRIBUTION WIDTH 13.9 % (11.0-15.5); WHITE BLOOD COUNT (AUTO) 8.5 K/uL (4.8-10.8)
[2020-07-14 23:00] VITALS: BP 112/53
[2020-07-15] VITALS (19 sets, daily range): BP systolic 86–156; BP diastolic 48–78
[2020-07-15 05:45] LABS: BASOPHILS % (AUTO) 0.8 % (0.0-5.0); EOSINOPHILS % (AUTO) 3.3 % (0.0-8.0); HEMATOCRIT 26.6 % (42-54); LYMPHOCYTES % (AUTO) 16.6 % (21.0-51.0); MEAN CORPUSCULAR HGB CONC 31.6 g/dL (32.0-36.0); MEAN CORPUSCULAR VOLUME 91.7 fL (79-99); MONOCYTES % (AUTO) 8.5 % (3.0-13.0); NEUTROPHILS % (AUTO) 70.2 % (40.0-77.0); PLATELET COUNT (AUTO) 168 K/uL (130-400); RED CELL DISTRIBUTION WIDTH 13.8 % (11.0-15.5); WHITE BLOOD COUNT (AUTO) 9.1 K/uL (4.8-10.8)
[2020-07-15 06:05] LABS: CREATININE 1.1 mg/dL (0.5-1.5); MAGNESIUM 2.1 mg/dL (1.80-2.40); PHOSPHORUS 3.8 mg/dL (2.5-4.9); POTASSIUM 4.3 mmol/L (3.5-5.1)
[2020-07-15] MEDS: 0.9%NACL 1000ML 1,000 ML IV SCH ×2 (08:02→21:17)
[2020-07-15] MEDS: LOSARTAN 100 MG TABLET PO SCH (08:02)
[2020-07-15] MEDS: ISOSORBIDE MONO 30MG SR TAB PO SCH (08:03)
[2020-07-15] MEDS: FLUTICASONE/VILANTEROL 1 EACH BLST.W.DEV IH SCH (08:06)
[2020-07-15] MEDS: ALPRAZOLAM 1 MG TAB PO PRN ×2 (09:58→21:50)
[2020-07-15] MEDS: HYDROCODONE/ACETAMINOPHEN 10/325 MG TAB PO PRN ×3 (10:02→21:49)
[2020-07-15 11:16] LABS: BASOPHILS % (AUTO) 0.8 % (0.0-5.0); EOSINOPHILS % (AUTO) 2.6 % (0.0-8.0); HEMATOCRIT 25.8 % (42-54); LYMPHOCYTES % (AUTO) 12.5 % (21.0-51.0); MEAN CORPUSCULAR HEMOGLOBIN 29.5 pg (27.0-33.0); MEAN CORPUSCULAR HGB CONC 31.8 g/dL (32.0-36.0); MEAN CORPUSCULAR VOLUME 92.8 fL (79-99); NEUTROPHILS % (AUTO) 76.5 % (40.0-77.0); PLATELET COUNT (AUTO) 183 K/uL (130-400); RED BLOOD CELL COUNT(AUTO) 2.78 MIL/uL (4.50-6.20); RED CELL DISTRIBUTION WIDTH 13.7 % (11.0-15.5); WHITE BLOOD COUNT (AUTO) 9.7 K/uL (4.8-10.8)
[2020-07-15] MEDS ORDERED: IODIXANOL 320 MG/ML 100 ML VIAL ONE ×2 (13:03→14:49)
[2020-07-15] MEDS ORDERED: LIDOCAINE HCL 400MG/20ML VIAL ONE (13:05)
[2020-07-15 13:46] LABS: INR 1.07 (0.85-1.15); PROTHROMBIN TIME 11.4 SEC (9.6-11.6)
[2020-07-15 15:33] LABS: BASOPHILS % (AUTO) 0.6 % (0.0-5.0); EOSINOPHILS % (AUTO) 3.4 % (0.0-8.0); HEMATOCRIT 22.9 % (42-54); LYMPHOCYTES % (AUTO) 17.4 % (21.0-51.0); MEAN CORPUSCULAR HEMOGLOBIN 29.1 pg (27.0-33.0); MEAN CORPUSCULAR HGB CONC 31.9 g/dL (32.0-36.0); MEAN CORPUSCULAR VOLUME 91.2 fL (79-99); MONOCYTES % (AUTO) 8.3 % (3.0-13.0); NEUTROPHILS % (AUTO) 69.9 % (40.0-77.0); PLATELET COUNT (AUTO) 162 K/uL (130-400); RED BLOOD CELL COUNT(AUTO) 2.51 MIL/uL (4.50-6.20); RED CELL DISTRIBUTION WIDTH 13.7 % (11.0-15.5); WHITE BLOOD COUNT (AUTO) 7.9 K/uL (4.8-10.8)
[2020-07-15] MEDS ORDERED: SUCCINYLCHOLINE CHLORIDE 20 MG/ML 10 ML VIAL ONE (16:41)
[2020-07-15] MEDS ORDERED: LIDOCAINE HCL-MPF 1% 5ML AMP IJ ONE (16:41)
[2020-07-15] MEDS ORDERED: PROPOFOL 10 MG/ML 20ML VIAL IV ONE (16:43)
[2020-07-15] MEDS ORDERED: ROCURONIUM 10MG/1ML SYR 10 MG/ML ML ONE (16:43)
[2020-07-15] MEDS ORDERED: ONDANSETRON 4MG INJ ONE (16:43)
[2020-07-15] MEDS ORDERED: DEXAMETHASONE SOD PHOSPHATE 10MG/ML 1ML VIAL ONE (16:43)
[2020-07-15] MEDS ORDERED: FENTANYL CITRATE PF 50 MCG/1 ML 2ML VIAL ONE (16:43)
[2020-07-15] MEDS ORDERED: CEFAZOLIN SODIUM 1 GM VIAL ONE (17:14)
[2020-07-15] MEDS ORDERED: ALBUMIN (HUMAN) 5% 0 ML IV ONE (17:15)
[2020-07-15] MEDS ORDERED: GLYCOPYRROLATE 1 MG/5 ML SYRINGE ONE (17:41)
[2020-07-15] MEDS ORDERED: NEOSTIGMINE 5MG/5ML SYR IV ONE (17:41)
[2020-07-15] MEDS ORDERED: MORPHINE 2 MG SYG ONE (18:00)
[2020-07-15] MEDS ORDERED: MEPERIDINE-PF 25 MG/ML SYG ONE (18:00)
[2020-07-15] MEDS: KETOROLAC 30MG VIAL (30MG/ML) IV PRN (18:42)
[2020-07-15] MEDS: ONDANSETRON 4MG INJ IVP PRN (18:42)
[2020-07-15] MEDS: CEFAZOLIN SODIUM 1 GM VIAL IVP SCH (18:44)
[2020-07-15 20:55] LABS: HEMATOCRIT 34.2 % (42-54)
[2020-07-15] MEDS: AMITRIPTYLINE 25 MG TABLET PO SCH (21:16)
[2020-07-15] MEDS: BUPROPION HCL 150 MG TABLET.SA PO SCH (21:16)
[2020-07-16] VITALS (29 sets, daily range): BP systolic 90–148; BP diastolic 40–91
[2020-07-16] MEDS: CEFAZOLIN SODIUM 1 GM VIAL IVP SCH (02:57)
[2020-07-16 03:47] LABS: BASOPHILS % (AUTO) 0.1 % (0.0-5.0); HEMATOCRIT 30.9 % (42-54); LYMPHOCYTES % (AUTO) 2.3 % (21.0-51.0); MEAN CORPUSCULAR HEMOGLOBIN 29.9 pg (27.0-33.0); MEAN CORPUSCULAR VOLUME 90.6 fL (79-99); MONOCYTES % (AUTO) 2.2 % (3.0-13.0); NEUTROPHILS % (AUTO) 94.9 % (40.0-77.0); PLATELET COUNT (AUTO) 195 K/uL (130-400); RED BLOOD CELL COUNT(AUTO) 3.41 MIL/uL (4.50-6.20); RED CELL DISTRIBUTION WIDTH 13.6 % (11.0-15.5)
[2020-07-16 03:53] LABS: CREATININE 0.9 mg/dL (0.5-1.5); MAGNESIUM 1.8 mg/dL (1.80-2.40); POTASSIUM 4.1 mmol/L (3.5-5.1)
[2020-07-16] MEDS: HYDROCODONE/ACETAMINOPHEN 10/325 MG TAB PO PRN (07:10)
[2020-07-16] MEDS: ALPRAZOLAM 1 MG TAB PO PRN (07:10)
[2020-07-16] MEDS: KETOROLAC 30MG VIAL (30MG/ML) IV PRN ×3 (07:25→22:51)
[2020-07-16] MEDS: FLUTICASONE/VILANTEROL 1 EACH BLST.W.DEV IH SCH (09:44)
[2020-07-16] MEDS: LOSARTAN 100 MG TABLET PO SCH (09:44)
[2020-07-16] MEDS: ISOSORBIDE MONO 30MG SR TAB PO SCH (09:44)
[2020-07-16] MEDS: 0.9%NACL 1000ML 1,000 ML IV SCH (09:44)
[2020-07-16] MEDS: ONDANSETRON 4MG INJ IVP PRN (11:25)
[2020-07-16] MEDS: MORPHINE 4 MG SYG IV PRN ×2 (11:25→20:10)
[2020-07-16 11:55] LABS: HEMATOCRIT 24.4 % (42-54)
[2020-07-16 19:53] LABS: HEMATOCRIT 22.6 % (42-54)
[2020-07-16] MEDS: BUPROPION HCL 150 MG TABLET.SA PO SCH (21:03)
[2020-07-16] MEDS: AMITRIPTYLINE 25 MG TABLET PO SCH (21:03)
[2020-07-17] VITALS (28 sets, daily range): BP systolic 102–159; BP diastolic 56–94
[2020-07-17] MEDS: MORPHINE 4 MG SYG IV PRN ×4 (03:27→19:37)
[2020-07-17 03:58] LABS: BASOPHILS % (AUTO) 0.1 % (0.0-5.0); HEMATOCRIT 24.8 % (42-54); LYMPHOCYTES % (AUTO) 7.1 % (21.0-51.0); MEAN CORPUSCULAR HEMOGLOBIN 30.1 pg (27.0-33.0); MEAN CORPUSCULAR HGB CONC 33.1 g/dL (32.0-36.0); MEAN CORPUSCULAR VOLUME 91.2 fL (79-99); MONOCYTES % (AUTO) 10.5 % (3.0-13.0); NEUTROPHILS % (AUTO) 81.7 % (40.0-77.0); NUCLEATED RED BLOOD CELLS 0.1 % (0.0-0.19); PLATELET COUNT (AUTO) 231 K/uL (130-400); RED BLOOD CELL COUNT(AUTO) 2.72 MIL/uL (4.50-6.20); RED CELL DISTRIBUTION WIDTH 13.7 % (11.0-15.5); WHITE BLOOD COUNT (AUTO) 20.9 K/uL (4.8-10.8)
[2020-07-17 04:27] LABS: ALBUMIN 2.3 g/dL (3.5-5.0); BILIRUBIN,TOTAL 0.9 mg/dL (0.2-1.0); CREATININE 1.1 mg/dL (0.5-1.5); POTASSIUM 4.5 mmol/L (3.5-5.1); TOTAL PROTEIN, SERUM 5.1 g/dL (6.0-8.3)
[2020-07-17] MEDS: 0.9%NACL 1000ML 1,000 ML IV SCH ×3 (04:34→19:29)
[2020-07-17] MEDS: ISOSORBIDE MONO 30MG SR TAB PO SCH (08:37)
[2020-07-17] MEDS: LOSARTAN 100 MG TABLET PO SCH (08:37)
[2020-07-17] MEDS: FLUTICASONE/VILANTEROL 1 EACH BLST.W.DEV IH SCH (08:39)
[2020-07-17] MEDS ORDERED: MENING VAC A,C,Y,W-135 DIP/PF 1 EACH VIAL IM SCH (12:00)
[2020-07-17] MEDS: ALBUTEROL 0.083% 2.5 MG/3 ML INH IH SCH ×2 (15:11→22:39)
[2020-07-17] MEDS ORDERED: ACETAMINOPHEN 325 MG TAB PO PRN (16:30)
[2020-07-17] MEDS: KETOROLAC 30MG VIAL (30MG/ML) IV PRN (18:31)
[2020-07-17 20:15] LABS: HEMATOCRIT 22.2 % (42-54)
[2020-07-17] MEDS: AMITRIPTYLINE 25 MG TABLET PO SCH (21:02)
[2020-07-17] MEDS: ALPRAZOLAM 1 MG TAB PO PRN (21:02)
[2020-07-17] MEDS: BUPROPION HCL 150 MG TABLET.SA PO SCH (21:02)
[2020-07-17] MEDS: HYDROCODONE/ACETAMINOPHEN 10/325 MG TAB PO PRN (21:03)
[2020-07-18] VITALS (18 sets, daily range): BP systolic 104–130; BP diastolic 55–99
[2020-07-18] MEDS: ALBUTEROL 0.083% 2.5 MG/3 ML INH IH SCH ×3 (06:23→21:21)
[2020-07-18 08:01] LABS: BASOPHILS % (AUTO) 0.2 % (0.0-5.0); EOSINOPHILS % (AUTO) 0.2 % (0.0-8.0); HEMATOCRIT 25.6 % (42-54); LYMPHOCYTES % (AUTO) 6.5 % (21.0-51.0); MEAN CORPUSCULAR HEMOGLOBIN 30.1 pg (27.0-33.0); MEAN CORPUSCULAR HGB CONC 32.4 g/dL (32.0-36.0); MEAN CORPUSCULAR VOLUME 92.8 fL (79-99); MONOCYTES % (AUTO) 11.8 % (3.0-13.0); NEUTROPHILS % (AUTO) 80.7 % (40.0-77.0); NUCLEATED RED BLOOD CELLS 0.1 % (0.0-0.19); PLATELET COUNT (AUTO) 283 K/uL (130-400); RED BLOOD CELL COUNT(AUTO) 2.76 MIL/uL (4.50-6.20); RED CELL DISTRIBUTION WIDTH 13.7 % (11.0-15.5); WHITE BLOOD COUNT (AUTO) 21.2 K/uL (4.8-10.8)
[2020-07-18] MEDS ORDERED: ONDANSETRON 4MG INJ ONE (08:01)
[2020-07-18] MEDS ORDERED: LIDOCAINE PF 100MG/5ML (2%) SYRINGE 5ML ONE (08:01)
[2020-07-18] MEDS ORDERED: PROPOFOL 10 MG/ML 20ML VIAL IV ONE (08:01)
[2020-07-18] MEDS ORDERED: DEXAMETHASONE SOD PHOSPHATE 10MG/ML 1ML VIAL ONE (08:01)
[2020-07-18] MEDS ORDERED: FENTANYL CITRATE PF 50 MCG/1 ML 2ML VIAL ONE (08:02)
[2020-07-18] MEDS ORDERED: MIDAZOLAM HCL 1 MG/ML 2ML VIAL ONE (08:02)
[2020-07-18 08:04] LABS: CREATININE 0.9 mg/dL (0.5-1.5); MAGNESIUM 2.3 mg/dL (1.80-2.40); POTASSIUM 3.8 mmol/L (3.5-5.1)
[2020-07-18] MEDS: FLUTICASONE/VILANTEROL 1 EACH BLST.W.DEV IH SCH (09:00)
[2020-07-18] MEDS: LOSARTAN 100 MG TABLET PO SCH (10:30)
[2020-07-18] MEDS: ISOSORBIDE MONO 30MG SR TAB PO SCH (10:30)
[2020-07-18] MEDS: HYDROCODONE/ACETAMINOPHEN 10/325 MG TAB PO PRN (10:30)
[2020-07-18] MEDS: ALPRAZOLAM 1 MG TAB PO PRN (10:30)
[2020-07-18] MEDS: HAEMOPH B POLY CONJ-TET TOX/PF 10 MCG/0.5 ML VIAL IM SCH ×2 (12:00→18:34)
[2020-07-18] MEDS: PNEUMOCOCCAL VACCINE POLYVALENT 0.5 ML/VIAL [PPV] IM SCH ×2 (12:00→20:03)
[2020-07-18] MEDS: 0.9%NACL 1000ML 1,000 ML IV SCH (16:42)
[2020-07-18] MEDS: BUPROPION HCL 150 MG TABLET.SA PO SCH (20:02)
[2020-07-18] MEDS: AMITRIPTYLINE 25 MG TABLET PO SCH (20:02)
[2020-07-19 00:47] VITALS: BP 132/73
[2020-07-19 04:28] VITALS: BP 119/72
[2020-07-19 04:43] LABS: MEAN CORPUSCULAR HEMOGLOBIN 29.4 pg (27.0-33.0); MEAN CORPUSCULAR HGB CONC 32.3 g/dL (32.0-36.0); MEAN CORPUSCULAR VOLUME 90.9 fL (79-99); NUCLEATED RED BLOOD CELLS 0.1 % (0.0-0.19); PLATELET COUNT (AUTO) 381 K/uL (130-400); RED BLOOD CELL COUNT(AUTO) 2.86 MIL/uL (4.50-6.20); RED CELL DISTRIBUTION WIDTH 13.5 % (11.0-15.5); WHITE BLOOD COUNT (AUTO) 21.1 K/uL (4.8-10.8)
[2020-07-19 05:01] LABS: ALBUMIN 2.2 g/dL (3.5-5.0); BILIRUBIN,TOTAL 1.2 mg/dL (0.2-1.0); CREATININE 0.9 mg/dL (0.5-1.5); POTASSIUM 3.8 mmol/L (3.5-5.1); TOTAL PROTEIN, SERUM 5.3 g/dL (6.0-8.3)
[2020-07-19] MEDS: 0.9%NACL 1000ML 1,000 ML IV SCH ×2 (05:51→21:22)
[2020-07-19 05:58] LABS: BAND NEUTROPHILS % (MANUAL) 1 % (0-2); LYMPHOCYTES % (MANUAL) 6 % (22-44); MAN.DIFF COMMENT-IMPRESSION MANUAL DIFFERENTIAL; MONOCYTES % (MANUAL) 9 % (2-9); SEGMENTED NEUTROPHILS % 84 % (40-70)
[2020-07-19] MEDS: ALBUTEROL 0.083% 2.5 MG/3 ML INH IH SCH ×3 (06:36→21:57)
[2020-07-19 08:00] VITALS: BP 130/74
[2020-07-19] MEDS: ISOSORBIDE MONO 30MG SR TAB PO SCH (08:41)
[2020-07-19] MEDS: LOSARTAN 100 MG TABLET PO SCH (08:41)
[2020-07-19] MEDS: HYDROCODONE/ACETAMINOPHEN 10/325 MG TAB PO PRN ×2 (08:43→18:08)
[2020-07-19] MEDS ORDERED: FUROSEMIDE 20MG VIAL IV SCH (10:45)
[2020-07-19 11:36] VITALS: BP 100/66
[2020-07-19] MEDS: PNEUMOCOCCAL VACCINE POLYVALENT 0.5 ML/VIAL [PPV] IM SCH (12:00)
[2020-07-19] MEDS: FLUTICASONE/VILANTEROL 1 EACH BLST.W.DEV IH SCH (14:37)
[2020-07-19 16:00] VITALS: BP 122/71
[2020-07-19 20:22] VITALS: BP 109/71
[2020-07-19] MEDS: BUPROPION HCL 150 MG TABLET.SA PO SCH (21:22)
[2020-07-19] MEDS: AMITRIPTYLINE 25 MG TABLET PO SCH (21:22)
[2020-07-20] VITALS (7 sets, daily range): BP systolic 97–130; BP diastolic 65–83
[2020-07-20 06:32] LABS: HEMATOCRIT 26.2 % (42-54); MEAN CORPUSCULAR HEMOGLOBIN 29.7 pg (27.0-33.0); MEAN CORPUSCULAR HGB CONC 32.4 g/dL (32.0-36.0); MEAN CORPUSCULAR VOLUME 91.6 fL (79-99); NUCLEATED RED BLOOD CELLS 0.1 % (0.0-0.19); RED BLOOD CELL COUNT(AUTO) 2.86 MIL/uL (4.50-6.20); RED CELL DISTRIBUTION WIDTH 13.4 % (11.0-15.5); WHITE BLOOD COUNT (AUTO) 20.3 K/uL (4.8-10.8)
[2020-07-20] MEDS: ALBUTEROL 0.083% 2.5 MG/3 ML INH IH SCH ×2 (06:40→13:39)
[2020-07-20 06:46] LABS: CREATININE 0.9 mg/dL (0.5-1.5); POTASSIUM 3.8 mmol/L (3.5-5.1)
[2020-07-20] MEDS: LOSARTAN 100 MG TABLET PO SCH (08:58)
[2020-07-20] MEDS: ISOSORBIDE MONO 30MG SR TAB PO SCH (08:58)
[2020-07-20] MEDS: 0.9%NACL 1000ML 1,000 ML IV SCH ×2 (08:59→21:20)
[2020-07-20] MEDS: KETOROLAC 30MG VIAL (30MG/ML) IV PRN (09:05)
[2020-07-20] MEDS: ALPRAZOLAM 1 MG TAB PO PRN ×2 (09:08→20:41)
[2020-07-20] MEDS: FLUTICASONE/VILANTEROL 1 EACH BLST.W.DEV IH SCH (09:09)
[2020-07-20 17:13] LABS: APPEARANCE,URINE Clear (CLEAR); BILIRUBIN,URINE Small (NEGATIVE); COLOR,URINE Dark Yellow (YELLOW); GLUCOSE, URINE (UA) Negative (NEGATIVE); KETONES,URINE Trace mg/dL (NEGATIVE); LEUKOCYTE ESTERASE ,URINE Trace (NEGATIVE); NITRATE,URINE Negative (NEGATIVE); OCCULT BLOOD,URINE Negative (NEGATIVE); PROTEIN,URINE POS 1+ mg/dL (NEGATIVE)
[2020-07-20 17:23] LABS: BACTERIA,URINE Few /HPF (None Seen); MUCUS,URINE Moderate LPF (None Seen); SQUAMOUS EPITHELIAL CELL,UR Few /HPF (0-2)
[2020-07-20] MEDS: BUPROPION HCL 150 MG TABLET.SA PO SCH (20:40)
[2020-07-20] MEDS: AMITRIPTYLINE 25 MG TABLET PO SCH (20:41)
[2020-07-20] MEDS: LEVOFLOXACIN 500 MG/D5W 100 ML 100 ML IV SCH (22:15)
[2020-07-20] MEDS: ZOSYN 3.375GM+NS 50ML 50 ML IV SCH (23:12)
[2020-07-20] MEDS: IPRATROPIUM/ALBUTEROL SULFATE 3 ML SOLUTION IH SCH (23:15)
[2020-07-21 03:33] VITALS: BP 118/72
[2020-07-21] MEDS: ZOSYN 3.375GM+NS 50ML 50 ML IV SCH ×3 (05:45→23:14)
[2020-07-21 05:59] LABS: HEMATOCRIT 26.5 % (42-54); MEAN CORPUSCULAR HEMOGLOBIN 29.2 pg (27.0-33.0); MEAN CORPUSCULAR HGB CONC 31.3 g/dL (32.0-36.0); MEAN CORPUSCULAR VOLUME 93.3 fL (79-99); NUCLEATED RED BLOOD CELLS 0.3 % (0.0-0.19); RED BLOOD CELL COUNT(AUTO) 2.84 MIL/uL (4.50-6.20); RED CELL DISTRIBUTION WIDTH 13.4 % (11.0-15.5)
[2020-07-21 06:20] LABS: POTASSIUM 4.1 mmol/L (3.5-5.1)
[2020-07-21] MEDS: IPRATROPIUM/ALBUTEROL SULFATE 3 ML SOLUTION IH SCH ×4 (06:53→23:07)
[2020-07-21 07:30] VITALS: BP 124/78
[2020-07-21] MEDS: LOSARTAN 100 MG TABLET PO SCH (08:27)
[2020-07-21] MEDS: ISOSORBIDE MONO 30MG SR TAB PO SCH (08:27)
[2020-07-21] MEDS: FLUTICASONE/VILANTEROL 1 EACH BLST.W.DEV IH SCH (08:27)
[2020-07-21] MEDS: ALPRAZOLAM 1 MG TAB PO PRN ×2 (08:46→09:23)
[2020-07-21] MEDS: HYDROCODONE/ACETAMINOPHEN 10/325 MG TAB PO PRN ×2 (09:25→22:02)
[2020-07-21] MEDS: 0.9%NACL 1000ML 1,000 ML IV SCH (10:40)
[2020-07-21 11:00] VITALS: BP 106/58
[2020-07-21] MEDS ORDERED: BENZOCAINE/MENTH/CETYLPYRD CL 1 EACH LOZENGE MM PRN (12:00)
[2020-07-21] MEDS ORDERED: NYSTATIN 100000 UNIT/ML 5ML UDCUP ONE (15:45)
[2020-07-21] MEDS: NYSTATIN 100000 UNIT/ML 5ML UDCUP PO SCH ×2 (15:57→21:53)
[2020-07-21 16:00] VITALS: BP 112/70
[2020-07-21] MEDS ORDERED: FUROSEMIDE 20MG VIAL IV SCH (16:00)
[2020-07-21 19:54] VITALS: BP 131/65
[2020-07-21] MEDS: AMITRIPTYLINE 25 MG TABLET PO SCH (21:53)
[2020-07-21] MEDS: LEVOFLOXACIN 500 MG/D5W 100 ML 100 ML IV SCH (21:53)
[2020-07-21] MEDS: BUPROPION HCL 150 MG TABLET.SA PO SCH (21:53)
[2020-07-21 23:43] VITALS: BP 122/67
[2020-07-22 03:59] VITALS: BP 117/72
[2020-07-22 04:54] LABS: BASOPHILS % (AUTO) 0.4 % (0.0-5.0); EOSINOPHILS % (AUTO) 5.1 % (0.0-8.0); HEMATOCRIT 25.7 % (42-54); LYMPHOCYTES % (AUTO) 8.8 % (21.0-51.0); MEAN CORPUSCULAR HEMOGLOBIN 28.7 pg (27.0-33.0); MEAN CORPUSCULAR HGB CONC 31.9 g/dL (32.0-36.0); MEAN CORPUSCULAR VOLUME 89.9 fL (79-99); MONOCYTES % (AUTO) 11.4 % (3.0-13.0); NEUTROPHILS % (AUTO) 73.4 % (40.0-77.0); NUCLEATED RED BLOOD CELLS 0.3 % (0.0-0.19); PLATELET COUNT (AUTO) 691 K/uL (130-400); RED BLOOD CELL COUNT(AUTO) 2.86 MIL/uL (4.50-6.20); RED CELL DISTRIBUTION WIDTH 13.4 % (11.0-15.5); WHITE BLOOD COUNT (AUTO) 21.6 K/uL (4.8-10.8)
[2020-07-22 05:17] LABS: BILIRUBIN,TOTAL 1.1 mg/dL (0.2-1.0); CREATININE 1.1 mg/dL (0.5-1.5); MAGNESIUM 1.7 mg/dL (1.80-2.40); PHOSPHORUS 3.5 mg/dL (2.5-4.9); POTASSIUM 3.8 mmol/L (3.5-5.1); TOTAL PROTEIN, SERUM 5.3 g/dL (6.0-8.3)
[2020-07-22] MEDS: ZOSYN 3.375GM+NS 50ML 50 ML IV SCH ×2 (05:27→15:10)
[2020-07-22] MEDS: IPRATROPIUM/ALBUTEROL SULFATE 3 ML SOLUTION IH SCH ×2 (06:26→11:28)
[2020-07-22 07:30] VITALS: BP 127/77
[2020-07-22] MEDS ORDERED: FUROSEMIDE 20 MG TABLET PO SCH (09:00)
[2020-07-22] MEDS: NYSTATIN 100000 UNIT/ML 5ML UDCUP PO SCH ×2 (09:51→14:55)
[2020-07-22] MEDS: LOSARTAN 100 MG TABLET PO SCH (09:52)
[2020-07-22] MEDS: FLUTICASONE/VILANTEROL 1 EACH BLST.W.DEV IH SCH (09:52)
[2020-07-22] MEDS: ISOSORBIDE MONO 30MG SR TAB PO SCH (09:52)
[2020-07-22] MEDS: HYDROCODONE/ACETAMINOPHEN 10/325 MG TAB PO PRN (10:06)
[2020-07-22 11:00] VITALS: BP 127/65
[2020-07-22] MEDS ORDERED: LEVO500T90 PO (15:33)
[2020-07-22] MEDS ORDERED: FENTANYL 100 MCG/HR PATCH TD SCH (16:00)
[2020-10-31] MEDS ORDERED: FENT1PAT60 TP (19:39)
[2020-10-31] MEDS ORDERED: ALPR1TAB7 PO (19:39)
[2020-11-02] MEDS ORDERED: AMIT50TA3 PO (23:01)
[2020-11-02] MEDS ORDERED: BUPR-317 PO (23:01)
[2020-11-03] MEDS ORDERED: HYDR-4068 PO (18:58)
[2020-11-03] MEDS ORDERED: AUD IH (18:58)
[2020-11-11] MEDS ORDERED: POLY17PO4 PO (10:01)
[2020-11-11] MEDS ORDERED: AMOX-429 PO (10:02)
== END 2020-07-22 18:11 | DRG 799 ==
LOC: EDH 11:14 → EDHIP 14:38 → 2DH 22:13 → 3DH 07-18 16:04
PROVIDERS: ADMIT Internal Medicine Critical Care Medicine; ATTEND Internal Medicine Critical Care Medicine
PROC: 30233N1 Transfusion of Nonautologous Red Blood Cells into Peripheral Vein, Percutaneous Approach (ICD-10-PCS; 2020-07-15)
PROC: 04JY3ZZ Inspection of Lower Artery, Percutaneous Approach (ICD-10-PCS; 2020-07-15)
PROC: B41F1ZZ Fluoroscopy of Right Lower Extremity Arteries using Low Osmolar Contrast (ICD-10-PCS; 2020-07-15)
PROC: B41B1ZZ Fluoroscopy of Other Intra-Abdominal Arteries using Low Osmolar Contrast (ICD-10-PCS; 2020-07-15)
PROC: 07TP0ZZ Resection of Spleen, Open Approach (ICD-10-PCS; principal; 2020-07-15 16:40)
PROC: 3E0234Z Introduction of Serum, Toxoid and Vaccine into Muscle, Percutaneous Approach (ICD-10-PCS; 2020-07-18)
PROC: 3E0234Z Introduction of Serum, Toxoid and Vaccine into Muscle, Percutaneous Approach (ICD-10-PCS; 2020-07-18)
PROC: 3E0234Z Introduction of Serum, Toxoid and Vaccine into Muscle, Percutaneous Approach (ICD-10-PCS; 2020-07-20)
DX: S36.039A Unspecified laceration of spleen, initial encounter (principal); J96.21 Acute and chronic respiratory failure with hypoxia; J18.9 Pneumonia, unspecified organism; K66.1 Hemoperitoneum; J98.11 Atelectasis; J44.1 Chronic obstructive pulmonary disease with (acute) exacerbation; R64 Cachexia; Z68.1 Body mass index [BMI] 19.9 or less, adult; J44.0 Chronic obstructive pulmonary disease with (acute) lower respiratory infection; D72.829 Elevated white blood cell count, unspecified; D47.3 Essential (hemorrhagic) thrombocythemia; I10 Essential (primary) hypertension; G89.4 Chronic pain syndrome; D64.9 Anemia, unspecified; Z20.822 Contact with and (suspected) exposure to COVID-19; F32.9 Major depressive disorder, single episode, unspecified; F41.9 Anxiety disorder, unspecified; X58.XXXA Exposure to other specified factors, initial encounter; Z23 Encounter for immunization; Z91.81 History of falling; Y93.89 Activity, other specified; Y92.89 Other specified places as the place of occurrence of the external cause; Y99.8 Other external cause status; Z88.5 Allergy status to narcotic agent; Z88.2 Allergy status to sulfonamides; Z88.4 Allergy status to anesthetic agent; S36.09XA Other injury of spleen, initial encounter
CPT/HCPCS: 36245; 36415; 36430; 37242; 70450; 71045; 74176; 74177; 75726; 80048; 80053; 81001; 82948; 83735; 84100; 84145; 84484; 85014; 85018; 85025; 85027; 85060; 85610; 86850; 86900; 86901; 86923; 87426; 88305; 90732; 93005; 93306; 93356; 94640; 94664; 94667; 94668; 97039; 99291; A4344; C1760; C1769; C1887; C1894; G0009; G0378; J0330; J0690; J1100; J1170; J1885; J1940; J1956; J2001; J2175; J2250; J2270; J2405; J2543; J2704; J2710; J3010; J3490; J7030; P9016; P9045; Q9967; U0003

== ENCOUNTER 2020-07-30 13:43 | Inpatient (IN) | payer OTHER ==
[~2020-07-30] VITALS: Ht 185.4 cm; Wt 58.0 kg
[~2020-07-30 13:43] MED LIST changes: +LEVO500T89 PO
[2020-07-30 14:47] LABS: BASOPHILS % (AUTO) 0.5 % (0.0-5.0); EOSINOPHILS % (AUTO) 1.7 % (0.0-8.0); HEMATOCRIT 35.5 % (42-54); LYMPHOCYTES % (AUTO) 5.8 % (21.0-51.0); MEAN CORPUSCULAR HGB CONC 31.3 g/dL (32.0-36.0); MEAN CORPUSCULAR VOLUME 89.6 fL (79-99); NEUTROPHILS % (AUTO) 82.8 % (40.0-77.0); RED BLOOD CELL COUNT(AUTO) 3.96 MIL/uL (4.50-6.20); WHITE BLOOD COUNT (AUTO) 21.2 K/uL (4.8-10.8)
[2020-07-30 14:53] LABS: PLATELET COUNT (AUTO) 796 K/uL (130-400)
[2020-07-30 15:01] LABS: POTASSIUM 4.5 mmol/L (3.5-5.1)
[2020-07-30 15:05] LABS: ALBUMIN 2.5 g/dL (3.5-5.0); BILIRUBIN,TOTAL 0.6 mg/dL (0.2-1.0); TOTAL PROTEIN, SERUM 6.7 g/dL (6.0-8.3)
[2020-07-30 15:43] LABS: PLATELET MORPHOLOGY COMMENT MARKED INCREASE
[2020-07-30 16:08] LABS: APPEARANCE,URINE Clear (CLEAR); BILIRUBIN,URINE Negative (NEGATIVE); COLOR,URINE Yellow (YELLOW); GLUCOSE, URINE (UA) Negative (NEGATIVE); KETONES,URINE Negative (NEGATIVE); LEUKOCYTE ESTERASE ,URINE Negative (NEGATIVE); NITRATE,URINE Negative (NEGATIVE); OCCULT BLOOD,URINE Negative (NEGATIVE); PH,URINE 6.5 (5.0-8.0); PROTEIN,URINE Negative (NEGATIVE)
[2020-07-30] MEDS ORDERED: HYDROMORPHONE 1 MG/1 ML AMP ONE ×2 (19:35→23:47)
[2020-07-30] MEDS ORDERED: HYDROMORPHONE 1 MG/1 ML AMP IVP PRN (19:45)
[2020-07-30] MEDS ORDERED: FENTANYL 75 MCG/HR PATCH TD SCH (20:00)
[2020-07-30] MEDS ORDERED: ONDANSETRON HCL 4 MG/2 ML VIAL IV PRN (21:45)
[2020-07-30] MEDS ORDERED: ACETAMINOPHEN 325 MG TAB PO PRN (21:45)
[2020-07-30] MEDS ORDERED: DiphenhydrAMINE HCL 50 MG/ML VIAL IV PRN (21:45)
[2020-07-30] MEDS ORDERED: IPRATROPIUM/ALBUTEROL SULFATE 3 ML SOLUTION IH PRN (21:45)
[2020-07-30] MEDS: FUROSEMIDE 10 MG/ML 4ML VIAL IVP SCH (22:00)
[2020-07-30] MEDS ORDERED: DiphenhydrAMINE HCL 50 MG/ML VIAL ONE (22:24)
[2020-07-30] MEDS ORDERED: ZOLPIDEM TARTRATE 5 MG TAB ONE (22:25)
[2020-07-30] MEDS ORDERED: ALPRAZOLAM 1 MG TAB ONE (23:47)
[2020-07-31] MEDS ORDERED: ALPRAZOLAM 1 MG TAB PO ONE (01:45)
[2020-07-31] MEDS ORDERED: HYDROMORPHONE 1 MG/1 ML AMP ONE (04:27)
[2020-07-31] MEDS ORDERED: FAMOTIDINE/PF 20 MG/2 ML VIAL IV SCH (09:00)
[2020-07-31] MEDS ORDERED: LIDOCAINE HCL-MPF 1% 2ML VIAL IV PRN ×2 (09:15)
[2020-07-31] MEDS ORDERED: GLUCAGON 1MG KIT 1 MG ML IM PRN (09:15)
[2020-07-31] MEDS ORDERED: MAGNESIUM 2GM PREMIX 50ML 50 ML IV PRN (09:15)
[2020-07-31] MEDS: ZOSYN 3.375GM+NS 50ML 50 ML IV SCH ×2 (09:15→17:15)
[2020-07-31] MEDS ORDERED: POTASSIUM CHLORIDE 20MEQ/100ML 100 ML IV PRN ×2 (09:15)
[2020-07-31] MEDS ORDERED: DEXTROSE 50%-WATER 50 ML DISP.SYRIN IV PRN (09:15)
[2020-07-31] MEDS ORDERED: POTASSIUM CHLORIDE 10% ELIXIR 20 MEQ/15 ML UDCUP PO PRN (09:15)
[2020-07-31] MEDS ORDERED: ZOSYN 3.375GM+NS 50ML 50 ML IV ONE ×2 (09:29→16:45)
[2020-07-31] MEDS ORDERED: AMITRIPTYLINE HCL 25 MG TABLET PO SCH (09:45)
[2020-07-31] MEDS ORDERED: ALBUTEROL INHALER 90MCG/INH IH PRN (09:45)
[2020-07-31 10:00] LABS: CREATINE KINASE, TOTAL 21 U/L (21-232); MYOGLOBIN 36 ng/mL (10-92); TROPONIN I < 0.04 ng/mL (0.00-0.06)
[2020-07-31] MEDS ORDERED: SODIUM CHLORIDE 0.9% 1000ML 1,000 ML IV ONE (10:12)
[2020-07-31] MEDS ORDERED: PANTOPRAZOLE 40 MG/VIAL ONE ×2 (10:12→20:38)
[2020-07-31] MEDS: PANTOPRAZOLE 40 MG/VIAL IVP SCH ×2 (10:15→21:00)
[2020-07-31] MEDS: SODIUM CHLORIDE 0.9% 1000ML 1,000 ML IV SCH ×2 (10:15→23:35)
[2020-07-31] MEDS ORDERED: FERS325 PO (10:43)
[2020-07-31] MEDS ORDERED: ONDA4TAB4 PO (10:43)
[2020-07-31] MEDS ORDERED: ALBUHFA IH (10:43)
[2020-07-31] MEDS ORDERED: FURO20TA4 PO (10:43)
[2020-07-31] MEDS ORDERED: POLY17PO4 PO (10:43)
[2020-07-31] MEDS ORDERED: FLUT1BLS9 IH (10:43)
[2020-07-31] MEDS ORDERED: BENZ1LOZ83 MM (10:43)
[2020-07-31] MEDS ORDERED: LEVO75CA5 PO (10:43)
[2020-07-31] MEDS ORDERED: ACET-3194 PO (10:43)
[2020-07-31] MEDS ORDERED: FLUT1BLS IH (10:43)
[2020-07-31] MEDS ORDERED: MULT-1192 PO (10:43)
[2020-07-31] MEDS ORDERED: FENTANYL 25 MCG/HR PATCH TD ONE (10:47)
[2020-07-31] MEDS ORDERED: ALPRAZOLAM 1 MG TAB ONE ×3 (10:47→20:39)
[2020-07-31] MEDS ORDERED: HYDROCODONE/ACETAMINOPHEN 5/325 MG TAB ONE (10:57)
[2020-07-31] MEDS ORDERED: HYDROCODONE/ACETAMINOPHEN 10/325 MG TAB ONE (11:02)
[2020-07-31] MEDS: ALPRAZOLAM 1 MG TAB PO SCH ×2 (14:00→21:00)
[2020-07-31] MEDS: LOSARTAN 100 MG TABLET PO SCH (15:00)
[2020-07-31] MEDS: FLUCONAZOLE 400 MG/NS 200 ML 200 ML IV SCH (15:30)
[2020-07-31 18:07] LABS: CREATINE KINASE, TOTAL 12 U/L (21-232); MYOGLOBIN 37 ng/mL (10-92); TROPONIN I < 0.04 ng/mL (0.00-0.06)
[2020-07-31] MEDS ORDERED: LOSARTAN 50 MG TABLET ONE (20:39)
[2020-07-31] MEDS ORDERED: FUROSEMIDE 10 MG/ML 4ML VIAL ONE (21:18)
[2020-07-31] MEDS ORDERED: METRONIDAZOLE 500MG/100ML BAG 100 ML ONE (21:18)
[2020-07-31] MEDS: FUROSEMIDE 10 MG/ML 4ML VIAL IVP SCH (22:00)
[2020-07-31] MEDS: METRONIDAZOLE 500MG/100ML BAG 100 ML IVPB SCH (22:00)
[2020-08-01] VITALS (8 sets, daily range): BP systolic 85–131; BP diastolic 49–88
[2020-08-01] MEDS: ZOSYN 3.375GM+NS 50ML 50 ML IV SCH ×3 (01:15→17:18)
[2020-08-01] MEDS ORDERED: METRONIDAZOLE 500MG/100ML BAG 100 ML ONE (05:38)
[2020-08-01 06:00] LABS: HEMATOCRIT 36.4 % (42-54); MEAN CORPUSCULAR HEMOGLOBIN 27.8 pg (27.0-33.0); MEAN CORPUSCULAR HGB CONC 32.1 g/dL (32.0-36.0); MEAN CORPUSCULAR VOLUME 86.5 fL (79-99); RED BLOOD CELL COUNT(AUTO) 4.21 MIL/uL (4.50-6.20); RED CELL DISTRIBUTION WIDTH 13.9 % (11.0-15.5); WHITE BLOOD COUNT (AUTO) 25.4 K/uL (4.8-10.8)
[2020-08-01] MEDS: METRONIDAZOLE 500MG/100ML BAG 100 ML IVPB SCH ×3 (06:00→20:37)
[2020-08-01 06:13] LABS: PLATELET COUNT (AUTO) 747 K/uL (130-400)
[2020-08-01 06:23] LABS: INR 1.18 (0.85-1.15); PROTHROMBIN TIME 12.7 SEC (9.6-11.6)
[2020-08-01] MEDS: LEVOTHYROXINE 75 MCG TABLET PO SCH (06:30)
[2020-08-01 06:35] LABS: CARBON DIOXIDE 26 mmol/L (21-32); CHLORIDE 100 mmol/L (101-111); CREATINE KINASE, TOTAL 13 U/L (21-232); CREATININE 1.1 mg/dL (0.5-1.5); GLOMERULAR FILTR. RATE CALC 69 mL/min (>60); GLUCOSE,RANDOM 100 mg/dL (70-105); MYOGLOBIN 49 ng/mL (10-92); POTASSIUM 3.9 mmol/L (3.5-5.1); SODIUM SERUM 138 mmol/L (136-145); TROPONIN I < 0.04 ng/mL (0.00-0.06); UREA NITROGEN, BLOOD 19 mg/dL (7-18)
[2020-08-01 06:51] LABS: LYMPHOCYTES % (MANUAL) 8 % (22-44); MAN.DIFF COMMENT-IMPRESSION MANUAL DIFFERENTIAL; MONOCYTES % (MANUAL) 5 % (2-9); PLATELET MORPHOLOGY COMMENT INCREASED; SEGMENTED NEUTROPHILS % 87 % (40-70)
[2020-08-01] MEDS: BUPROPION HCL 150 MG TABLET.SA PO SCH (09:00)
[2020-08-01] MEDS: FERROUS SULFATE 325 MG TABLET.DR PO SCH (09:00)
[2020-08-01] MEDS: FLUCONAZOLE 400 MG/NS 200 ML 200 ML IV SCH (09:00)
[2020-08-01] MEDS: LOSARTAN 100 MG TABLET PO SCH (09:00)
[2020-08-01] MEDS ORDERED: FUROSEMIDE 20 MG TABLET PO SCH (09:00)
[2020-08-01] MEDS: FLUTICASONE/VILANTEROL 1 EACH BLST.W.DEV IH SCH (09:00)
[2020-08-01] MEDS: ALPRAZOLAM 1 MG TAB PO SCH ×3 (09:00→21:00)
[2020-08-01] MEDS ORDERED: FERROUS SULFATE 325 MG TABLET.DR ONE (09:13)
[2020-08-01] MEDS ORDERED: ISOSORBIDE MONO 30MG TAB SR PO ONE (09:14)
[2020-08-01] MEDS ORDERED: ZOSYN 3.375GM+NS 50ML 50 ML IV ONE (09:14)
[2020-08-01] MEDS ORDERED: ALPRAZOLAM 1 MG TAB ONE (09:14)
[2020-08-01] MEDS: SODIUM CHLORIDE 0.9% 1000ML 1,000 ML IV SCH (13:59)
[2020-08-01 17:13] LABS: APPEARANCE BODY FLUID CLOUDY (CLEAR); SPECIMENTYPE,BODY FLUID THORACENTESIS
[2020-08-01 17:14] LABS: COLOR,BODY FLUID DARK YELLOW (LT YELLOW); TOTAL VOLUME,BODY FLUID 1300 mL
[2020-08-01 17:15] LABS: BODY FLUID WBC 3716 /cu. mm.
[2020-08-01 17:16] LABS: BODY FLUID RBC 3276 /cu. mm.
[2020-08-01 18:28] LABS: BF LYMPHOCYTE 13 %; BF MONOCYTE 1 %; BF OTHER CELLS 2
[2020-08-01] MEDS: ISOSORBIDE MONO 30MG TAB SR PO SCH (20:30)
[2020-08-01] MEDS: PANTOPRAZOLE SODIUM 40 MG TABLET.DR PO SCH (20:37)
[2020-08-01] MEDS: FUROSEMIDE 10 MG/ML 4ML VIAL IVP SCH (22:40)
[2020-08-01] MEDS: HYDROCODONE/ACETAMINOPHEN 10/325 MG TAB PO PRN (23:46)
[2020-08-02] VITALS: BP_SYST 102; BP_SYST 140; BP_DIAS 62; BP_DIAS 76
[2020-08-02] MEDS: ZOSYN 3.375GM+NS 50ML 50 ML IV SCH ×3 (01:18→18:00)
[2020-08-02] MEDS: ALPRAZOLAM 1 MG TAB PO SCH ×4 (01:27→20:18)
[2020-08-02] MEDS: SODIUM CHLORIDE 0.9% 1000ML 1,000 ML IV SCH ×3 (02:15→20:19)
[2020-08-02 04:00] VITALS: BP 93/52
[2020-08-02 05:12] LABS: HEMATOCRIT 30.1 % (42-54); MEAN CORPUSCULAR HEMOGLOBIN 27.1 pg (27.0-33.0); MEAN CORPUSCULAR HGB CONC 31.6 g/dL (32.0-36.0); RED BLOOD CELL COUNT(AUTO) 3.5 MIL/uL (4.50-6.20); RED CELL DISTRIBUTION WIDTH 14.4 % (11.0-15.5); WHITE BLOOD COUNT (AUTO) 17.7 K/uL (4.8-10.8)
[2020-08-02 05:35] LABS: BILIRUBIN,TOTAL 0.7 mg/dL (0.2-1.0); CREATININE 1.5 mg/dL (0.5-1.5); MAGNESIUM 1.9 mg/dL (1.80-2.40); POTASSIUM 3.6 mmol/L (3.5-5.1); TOTAL PROTEIN, SERUM 5.9 g/dL (6.0-8.3)
[2020-08-02] MEDS: LEVOTHYROXINE 75 MCG TABLET PO SCH (05:36)
[2020-08-02] MEDS: METRONIDAZOLE 500MG/100ML BAG 100 ML IVPB SCH ×3 (05:37→20:19)
[2020-08-02 08:00] VITALS: BP 91/60
[2020-08-02] MEDS: LOSARTAN 100 MG TABLET PO SCH (09:00)
[2020-08-02] MEDS: FLUTICASONE/VILANTEROL 1 EACH BLST.W.DEV IH SCH ×2 (09:00→10:11)
[2020-08-02] MEDS: ISOSORBIDE MONO 30MG TAB SR PO SCH (09:00)
[2020-08-02] MEDS: FLUCONAZOLE 400 MG/NS 200 ML 200 ML IV SCH (10:04)
[2020-08-02] MEDS: PANTOPRAZOLE SODIUM 40 MG TABLET.DR PO SCH ×2 (10:08→20:18)
[2020-08-02] MEDS: BUPROPION HCL 150 MG TABLET.SA PO SCH (10:08)
[2020-08-02] MEDS: FERROUS SULFATE 325 MG TABLET.DR PO SCH (10:08)
[2020-08-02 11:22] VITALS: BP 100/61
[2020-08-02] MEDS: HYDROCODONE/ACETAMINOPHEN 10/325 MG TAB PO PRN (13:57)
[2020-08-02 16:00] VITALS: BP 95/61
[2020-08-02 20:00] VITALS: BP 90/60
[2020-08-03] VITALS: BP_SYST 103; BP_SYST 96; BP_DIAS 57; BP_DIAS 66
[2020-08-03] MEDS: ZOSYN 3.375GM+NS 50ML 50 ML IV SCH ×3 (01:23→17:06)
[2020-08-03] MEDS: HYDROCODONE/ACETAMINOPHEN 10/325 MG TAB PO PRN ×2 (01:24→21:01)
[2020-08-03 04:00] VITALS: BP 103/64
[2020-08-03] MEDS: METRONIDAZOLE 500MG/100ML BAG 100 ML IVPB SCH ×3 (05:51→20:43)
[2020-08-03] MEDS: LEVOTHYROXINE 75 MCG TABLET PO SCH (05:51)
[2020-08-03 06:09] LABS: HEMATOCRIT 29.1 % (42-54); MEAN CORPUSCULAR HGB CONC 30.6 g/dL (32.0-36.0); MEAN CORPUSCULAR VOLUME 88.2 fL (79-99); RED BLOOD CELL COUNT(AUTO) 3.3 MIL/uL (4.50-6.20); RED CELL DISTRIBUTION WIDTH 14.6 % (11.0-15.5); WHITE BLOOD COUNT (AUTO) 15.6 K/uL (4.8-10.8)
[2020-08-03 06:28] LABS: CREATININE 1.1 mg/dL (0.5-1.5); POTASSIUM 3.7 mmol/L (3.5-5.1)
[2020-08-03 07:50] VITALS: BP 98/65
[2020-08-03] MEDS: FLUTICASONE/VILANTEROL 1 EACH BLST.W.DEV IH SCH (09:00)
[2020-08-03] MEDS: LOSARTAN 100 MG TABLET PO SCH (09:00)
[2020-08-03] MEDS: ISOSORBIDE MONO 30MG TAB SR PO SCH (09:00)
[2020-08-03] MEDS: FERROUS SULFATE 325 MG TABLET.DR PO SCH (09:39)
[2020-08-03] MEDS: PANTOPRAZOLE SODIUM 40 MG TABLET.DR PO SCH ×2 (09:39→20:43)
[2020-08-03] MEDS: ALPRAZOLAM 1 MG TAB PO SCH ×3 (09:39→20:43)
[2020-08-03] MEDS: BUPROPION HCL 150 MG TABLET.SA PO SCH (09:39)
[2020-08-03] MEDS: FLUCONAZOLE 400 MG/NS 200 ML 200 ML IV SCH (09:41)
[2020-08-03 11:25] VITALS: BP 110/65
[2020-08-03] MEDS: ALBUTEROL SULFATE 0.083% 2.5 MG/3 ML INH IH SCH ×3 (15:04→22:05)
[2020-08-03 16:30] VITALS: BP 114/63
[2020-08-03] MEDS: SODIUM CHLORIDE 0.9% 1000ML 1,000 ML IV SCH (17:06)
[2020-08-03 20:00] VITALS: BP 103/65
[2020-08-03] MEDS: ZOLPIDEM TARTRATE 5 MG TAB PO PRN (20:43)
[2020-08-04] VITALS (7 sets, daily range): BP systolic 103–128; BP diastolic 69–76
[2020-08-04] MEDS: ZOSYN 3.375GM+NS 50ML 50 ML IV SCH ×3 (00:57→18:04)
[2020-08-04] MEDS: ALBUTEROL SULFATE 0.083% 2.5 MG/3 ML INH IH SCH ×7 (01:43→22:03)
[2020-08-04 04:33] LABS: HEMATOCRIT 28.1 % (42-54); MEAN CORPUSCULAR HEMOGLOBIN 27.1 pg (27.0-33.0); MEAN CORPUSCULAR HGB CONC 31.3 g/dL (32.0-36.0); MEAN CORPUSCULAR VOLUME 86.5 fL (79-99); RED BLOOD CELL COUNT(AUTO) 3.25 MIL/uL (4.50-6.20); RED CELL DISTRIBUTION WIDTH 14.7 % (11.0-15.5); WHITE BLOOD COUNT (AUTO) 13.7 K/uL (4.8-10.8)
[2020-08-04 04:46] LABS: CREATININE 0.8 mg/dL (0.5-1.5); POTASSIUM 3.5 mmol/L (3.5-5.1)
[2020-08-04] MEDS: LEVOTHYROXINE 75 MCG TABLET PO SCH (05:31)
[2020-08-04] MEDS: METRONIDAZOLE 500MG/100ML BAG 100 ML IVPB SCH ×3 (05:31→20:44)
[2020-08-04] MEDS: LOSARTAN 100 MG TABLET PO SCH (09:00)
[2020-08-04] MEDS: ISOSORBIDE MONO 30MG TAB SR PO SCH (09:00)
[2020-08-04] MEDS: SODIUM CHLORIDE 0.9% 1000ML 1,000 ML IV SCH ×2 (09:43→20:55)
[2020-08-04] MEDS: FLUCONAZOLE 400 MG/NS 200 ML 200 ML IV SCH (09:43)
[2020-08-04] MEDS: FERROUS SULFATE 325 MG TABLET.DR PO SCH (09:44)
[2020-08-04] MEDS: ALPRAZOLAM 1 MG TAB PO SCH ×3 (09:44→20:44)
[2020-08-04] MEDS: PANTOPRAZOLE SODIUM 40 MG TABLET.DR PO SCH ×2 (09:44→20:44)
[2020-08-04] MEDS: BUPROPION HCL 150 MG TABLET.SA PO SCH (09:44)
[2020-08-04] MEDS: POTASSIUM CHLORIDE 20 MEQ ERTAB PO PRN ×2 (09:53→09:54)
[2020-08-04] MEDS: FLUTICASONE/VILANTEROL 1 EACH BLST.W.DEV IH SCH (14:38)
[2020-08-04] MEDS ORDERED: FENTANYL 75 MCG/HR PATCH TD SCH (17:00)
[2020-08-04] MEDS ORDERED: FENTANYL 25 MCG TD SCH (17:00)
[2020-08-04] MEDS ORDERED: FENTANYL 25 MCG/HR PATCH TD SCH (18:00)
[2020-08-04] MEDS: DRONABINOL 2.5 MG CAP PO SCH (20:44)
[2020-08-05] MEDS: ZOSYN 3.375GM+NS 50ML 50 ML IV SCH ×3 (00:58→18:07)
[2020-08-05] MEDS: ALBUTEROL SULFATE 0.083% 2.5 MG/3 ML INH IH SCH ×5 (03:02→18:24)
[2020-08-05] MEDS: ZOLPIDEM TARTRATE 5 MG TAB PO PRN ×2 (03:09→21:11)
[2020-08-05 04:00] VITALS: BP 117/77
[2020-08-05 05:39] LABS: HEMATOCRIT 27.8 % (42-54); MEAN CORPUSCULAR HEMOGLOBIN 26.8 pg (27.0-33.0); MEAN CORPUSCULAR HGB CONC 30.9 g/dL (32.0-36.0); MEAN CORPUSCULAR VOLUME 86.6 fL (79-99); RED BLOOD CELL COUNT(AUTO) 3.21 MIL/uL (4.50-6.20); WHITE BLOOD COUNT (AUTO) 11.6 K/uL (4.8-10.8)
[2020-08-05 06:00] LABS: CREATININE 0.8 mg/dL (0.5-1.5); POTASSIUM 3.7 mmol/L (3.5-5.1)
[2020-08-05] MEDS: METRONIDAZOLE 500MG/100ML BAG 100 ML IVPB SCH ×3 (07:17→21:11)
[2020-08-05] MEDS: LEVOTHYROXINE 75 MCG TABLET PO SCH (07:17)
[2020-08-05 08:00] VITALS: BP 134/73
[2020-08-05] MEDS: FERROUS SULFATE 325 MG TABLET.DR PO SCH (09:28)
[2020-08-05] MEDS: BUPROPION HCL 150 MG TABLET.SA PO SCH (09:29)
[2020-08-05] MEDS: PANTOPRAZOLE SODIUM 40 MG TABLET.DR PO SCH ×2 (09:29→21:11)
[2020-08-05] MEDS: ISOSORBIDE MONO 30MG TAB SR PO SCH (09:29)
[2020-08-05] MEDS: LOSARTAN 100 MG TABLET PO SCH (09:29)
[2020-08-05] MEDS: DRONABINOL 2.5 MG CAP PO SCH ×2 (09:30→21:11)
[2020-08-05] MEDS: ALPRAZOLAM 1 MG TAB PO SCH ×3 (09:30→21:11)
[2020-08-05] MEDS: FLUCONAZOLE 400 MG/NS 200 ML 200 ML IV SCH (09:30)
[2020-08-05] MEDS: SODIUM CHLORIDE 0.9% 1000ML 1,000 ML IV SCH ×2 (10:15→23:35)
[2020-08-05 12:00] VITALS: BP 88/63
[2020-08-05 16:00] VITALS: BP 109/57
[2020-08-05] MEDS: FLUTICASONE/VILANTEROL 1 EACH BLST.W.DEV IH SCH (18:08)
[2020-08-05 20:04] VITALS: BP 107/63
[2020-08-06 00:04] VITALS: BP 96/56
[2020-08-06] MEDS: ALBUTEROL SULFATE 0.083% 2.5 MG/3 ML INH IH SCH ×3 (02:29→10:01)
[2020-08-06] MEDS: ZOSYN 3.375GM+NS 50ML 50 ML IV SCH ×2 (03:45→11:02)
[2020-08-06 04:04] VITALS: BP 109/70
[2020-08-06 05:26] LABS: HEMATOCRIT 25.2 % (42-54); MEAN CORPUSCULAR HGB CONC 31.3 g/dL (32.0-36.0); RED BLOOD CELL COUNT(AUTO) 2.93 MIL/uL (4.50-6.20); RED CELL DISTRIBUTION WIDTH 15.4 % (11.0-15.5); WHITE BLOOD COUNT (AUTO) 10.8 K/uL (4.8-10.8)
[2020-08-06 05:33] LABS: CREATININE 0.9 mg/dL (0.5-1.5); POTASSIUM 3.5 mmol/L (3.5-5.1)
[2020-08-06] MEDS: METRONIDAZOLE 500MG/100ML BAG 100 ML IVPB SCH (06:17)
[2020-08-06] MEDS: LEVOTHYROXINE 75 MCG TABLET PO SCH (06:17)
[2020-08-06 08:18] VITALS: BP 126/79
[2020-08-06] MEDS: FLUCONAZOLE 400 MG/NS 200 ML 200 ML IV SCH (09:14)
[2020-08-06] MEDS: FERROUS SULFATE 325 MG TABLET.DR PO SCH (09:15)
[2020-08-06] MEDS: ALPRAZOLAM 1 MG TAB PO SCH (09:15)
[2020-08-06] MEDS: BUPROPION HCL 150 MG TABLET.SA PO SCH (09:15)
[2020-08-06] MEDS: DRONABINOL 2.5 MG CAP PO SCH (09:15)
[2020-08-06] MEDS: PANTOPRAZOLE SODIUM 40 MG TABLET.DR PO SCH (09:15)
[2020-08-06] MEDS: LOSARTAN 100 MG TABLET PO SCH (09:15)
[2020-08-06] MEDS: ISOSORBIDE MONO 30MG TAB SR PO SCH (09:16)
[2020-08-06] MEDS: FLUTICASONE/VILANTEROL 1 EACH BLST.W.DEV IH SCH (09:16)
[2020-08-06] MEDS ORDERED: FLUC200T8 PO (10:41)
[2020-08-06] MEDS ORDERED: AMOX-429 PO (10:41)
[2020-08-06 12:20] VITALS: BP 137/65
== END 2020-08-06 14:00 | disposition home or self-care (01) | DRG 372 ==
LOC: EDH 13:43 → EDHIP 21:26 → OBSVTOIN 21:26 → 3CH 07-31 04:46 → EDHIP 07-31 04:57 → 3AH 08-01 10:17
PROVIDERS: ADMIT Internal Medicine Critical Care Medicine; ATTEND Internal Medicine Critical Care Medicine
PROC: 0W9H30Z Drainage of Retroperitoneum with Drainage Device, Percutaneous Approach (ICD-10-PCS; principal; 2020-08-01)
PROC: 0W9B3ZZ Drainage of Left Pleural Cavity, Percutaneous Approach (ICD-10-PCS; 2020-08-01)
DX: K68.19 Other retroperitoneal abscess (principal); J90 Pleural effusion, not elsewhere classified; J96.10 Chronic respiratory failure, unspecified whether with hypoxia or hypercapnia; J98.11 Atelectasis; N17.9 Acute kidney failure, unspecified; R64 Cachexia; Z68.1 Body mass index [BMI] 19.9 or less, adult; E44.0 Moderate protein-calorie malnutrition; Z90.81 Acquired absence of spleen; D50.9 Iron deficiency anemia, unspecified; E03.9 Hypothyroidism, unspecified; F17.210 Nicotine dependence, cigarettes, uncomplicated; F32.9 Major depressive disorder, single episode, unspecified; F41.9 Anxiety disorder, unspecified; M54.9 Dorsalgia, unspecified; D47.3 Essential (hemorrhagic) thrombocythemia; R53.81 Other malaise; G89.29 Other chronic pain; I10 Essential (primary) hypertension; I25.10 Atherosclerotic heart disease of native coronary artery without angina pectoris; J44.9 Chronic obstructive pulmonary disease, unspecified; Z79.51 Long term (current) use of inhaled steroids; Z79.891 Long term (current) use of opiate analgesic; Z99.81 Dependence on supplemental oxygen; Z88.5 Allergy status to narcotic agent; Z88.2 Allergy status to sulfonamides; Z88.8 Allergy status to other drugs, medicaments and biological substances
CPT/HCPCS: 10030; 32555; 36415; 71045; 74176; 74230; 76942; 80048; 80053; 81003; 82550; 82948; 83605; 83615; 83690; 83735; 83874; 84157; 84484; 85025; 85027; 85610; 87040; 87071; 87205; 89051; 92610; 92611; 93005; 94640; 94664; 97039; C9113; G0378; J1170; J1200; J1450; J1940; J2405; J2543; J3490; J7030; Q0167

== ENCOUNTER 2020-08-16 10:56 | Observation (INO) | payer OTHER ==
[~2020-08-16] VITALS: Ht 185.4 cm; Wt 56.7 kg
[~2020-08-16 10:56] MED LIST changes: +ACET-3194 PO; -ALBU0.63 IH; +ALBUHFA IH; +AMOX-429 PO; +BENZ1LOZ83 MM; -BUDE10.2 IH; +FERS325 PO; +FLUC200T8 PO; +FLUT1BLS IH; +FLUT1BLS9 IH; +FURO20TA4 PO; -LEVO500T89 PO; +LEVO75CA5 PO; +MULT-1192 PO; +ONDA4TAB4 PO
[2020-08-16] MEDS ORDERED: CEFTRIAXONE SODIUM 2 GM VIAL ONE (11:20)
[2020-08-16] MEDS ORDERED: DEXAMETHASONE SOD PHOSPHATE 10MG/ML 1ML VIAL ONE (11:20)
[2020-08-16] MEDS ORDERED: FAMOTIDINE/PF 20 MG/2 ML VIAL IV ONE (11:21)
[2020-08-16] MEDS ORDERED: SODIUM CHLORIDE 0.9% 100 ML IV ONE (11:21)
[2020-08-16 11:49] LABS: CREATININE 1.2 mg/dL (0.5-1.5); POTASSIUM 3.9 mmol/L (3.5-5.1)
[2020-08-16 11:51] LABS: INR 1.01 (0.85-1.15)
[2020-08-16 11:52] LABS: PARTIAL THROMBOPLASTIN TIME 27.7 SEC (26.3-35.5)
[2020-08-16 11:53] LABS: ALBUMIN 2.5 g/dL (3.5-5.0); BILIRUBIN,TOTAL 0.3 mg/dL (0.2-1.0)
[2020-08-16 12:00] LABS: ABG BASE EXCESS 2.7 mmol/L (-2.0-3.0); ABG HCO3 26.9 mmol/L (21.0-28.0); ABG OXYGEN SATURATION 87.5 % (95.0-99.0); ABG PCO2 40 mmHg (35-48)
[2020-08-16 12:21] LABS: APPEARANCE,URINE Clear (CLEAR); BILIRUBIN,URINE Negative (NEGATIVE); COLOR,URINE Yellow (YELLOW); GLUCOSE, URINE (UA) Negative (NEGATIVE); KETONES,URINE Negative (NEGATIVE); LEUKOCYTE ESTERASE ,URINE Negative (NEGATIVE); NITRATE,URINE Negative (NEGATIVE); OCCULT BLOOD,URINE Negative (NEGATIVE); PH,URINE 6.5 (5.0-8.0); PROTEIN,URINE Negative (NEGATIVE); UROBILINOGEN,URINE 0.2 mg/dL (0.2-1.0)
[2020-08-16 12:28] LABS: AMPHET/METH SCREEN,URINE NEGATIVE (NEGATIVE); BARBITURATE SCREEN, URINE NEGATIVE (NEGATIVE); BENZODIAZEPINES SCREEN,URINE POSITIVE (NEGATIVE); CANNABINOID SCREEN,URINE NEGATIVE (NEGATIVE); COCAINE SCREEN,URINE NEGATIVE (NEGATIVE); OPIATE SCREEN,URINE POSITIVE (NEGATIVE); PHENCYCLIDINE SCREEN,URINE NEGATIVE (NEGATIVE)
[2020-08-16] MEDS ORDERED: AZITHROMYCIN 500MG+NS 250ML 250 ML IV ONE (13:06)
[2020-08-16] MEDS ORDERED: IOHEXOL-350 75 ML VIAL IV ONE (14:02)
[2020-08-16] MEDS ORDERED: ACETAMINOPHEN 650 MG SUPPOSITORY RC PRN (14:15)
[2020-08-16] MEDS ORDERED: ONDANSETRON HCL 4 MG/2 ML VIAL IVP PRN (14:15)
[2020-08-16] MEDS ORDERED: ACETAMINOPHEN 325 MG TAB PO PRN (14:15)
[2020-08-16] MEDS: ZOSYN 3.375GM+NS 50ML 50 ML IV SCH ×2 (14:15→22:15)
[2020-08-16] MEDS ORDERED: NALOXONE HCL 0.4 MG/1 ML ML IVP SCH (14:30)
[2020-08-16] MEDS ORDERED: ZOSYN 3.375GM+NS 50ML 50 ML IV ONE ×2 (14:36→20:57)
[2020-08-16] MEDS ORDERED: DEXTROSE 5%-LACTATED RINGERS 1,000 ML IV ONE (14:36)
[2020-08-16] MEDS ORDERED: ONDANSETRON HCL 4 MG/2 ML VIAL ONE (14:36)
[2020-08-16] MEDS ORDERED: NALOXONE HCL 0.4 MG/1 ML ML ONE (14:36)
[2020-08-16 16:52] LABS: MYOGLOBIN 1835 ng/mL (10-92); TROPONIN I < 0.04 ng/mL (0.00-0.06)
[2020-08-16 17:02] LABS: AMMONIA 19 umol/L (11-32)
[2020-08-16 17:06] LABS: CREATINE KINASE, TOTAL 1149 U/L (21-232)
[2020-08-16 18:27] LABS: BASOPHILS % (AUTO) 0.4 % (0.0-5.0); HEMATOCRIT 37.9 % (42-54); LYMPHOCYTES % (AUTO) 4.2 % (21.0-51.0); MEAN CORPUSCULAR HEMOGLOBIN 27.2 pg (27.0-33.0); MEAN CORPUSCULAR HGB CONC 30.3 g/dL (32.0-36.0); MEAN CORPUSCULAR VOLUME 89.6 fL (79-99); MONOCYTES % (AUTO) 0.4 % (3.0-13.0); NEUTROPHILS % (AUTO) 94.4 % (40.0-77.0); PLATELET COUNT (AUTO) 511 K/uL (130-400); RED BLOOD CELL COUNT(AUTO) 4.23 MIL/uL (4.50-6.20); RED CELL DISTRIBUTION WIDTH 17.5 % (11.0-15.5); WHITE BLOOD COUNT (AUTO) 13.6 K/uL (4.8-10.8)
[2020-08-16] MEDS: IPRATROPIUM/ALBUTEROL SULFATE 3 ML SOLUTION IH SCH ×2 (19:45→23:30)
[2020-08-16] MEDS ORDERED: IPRATROPIUM/ALBUTEROL SULFATE 3 ML SOLUTION IH ONE ×2 (20:07→23:38)
[2020-08-16 20:54] LABS: MYOGLOBIN 166 ng/mL (10-92); TROPONIN I < 0.04 ng/mL (0.00-0.06)
[2020-08-16 20:55] LABS: CREATINE KINASE, TOTAL 417 U/L (21-232)
[2020-08-17] VITALS (7 sets, daily range): BP systolic 96–130; BP diastolic 58–81
[2020-08-17 01:59] LABS: CREATINE KINASE, TOTAL 363 U/L (21-232); MYOGLOBIN 110 ng/mL (10-92); TROPONIN I < 0.04 ng/mL (0.00-0.06)
[2020-08-17] MEDS: IPRATROPIUM/ALBUTEROL SULFATE 3 ML SOLUTION IH SCH ×5 (02:10→23:18)
[2020-08-17] MEDS: DEXTROSE 5%-LACTATED RINGERS 1,000 ML IV SCH ×2 (03:35→15:16)
[2020-08-17 06:06] LABS: BASOPHILS % (AUTO) 0.1 % (0.0-5.0); HEMATOCRIT 34.5 % (42-54); LYMPHOCYTES % (AUTO) 10.9 % (21.0-51.0); MEAN CORPUSCULAR HEMOGLOBIN 27.2 pg (27.0-33.0); MEAN CORPUSCULAR HGB CONC 30.7 g/dL (32.0-36.0); MEAN CORPUSCULAR VOLUME 88.5 fL (79-99); MONOCYTES % (AUTO) 2.4 % (3.0-13.0); NEUTROPHILS % (AUTO) 85.7 % (40.0-77.0); PLATELET COUNT (AUTO) 505 K/uL (130-400); RED CELL DISTRIBUTION WIDTH 17.2 % (11.0-15.5)
[2020-08-17] MEDS: ZOSYN 3.375GM+NS 50ML 50 ML IV SCH ×3 (06:09→22:21)
[2020-08-17 06:15] LABS: CREATININE 1.1 mg/dL (0.5-1.5); MAGNESIUM 1.9 mg/dL (1.80-2.40); PHOSPHORUS 3.7 mg/dL (2.5-4.9); POTASSIUM 4.5 mmol/L (3.5-5.1)
[2020-08-18] VITALS (8 sets, daily range): BP systolic 117–133; BP diastolic 73–87
[2020-08-18] MEDS: IPRATROPIUM/ALBUTEROL SULFATE 3 ML SOLUTION IH SCH ×4 (02:01→19:03)
[2020-08-18] MEDS: ZOSYN 3.375GM+NS 50ML 50 ML IV SCH ×2 (06:15→16:33)
[2020-08-18] MEDS: DEXTROSE 5%-LACTATED RINGERS 1,000 ML IV SCH ×2 (06:15→11:22)
[2020-08-18] MEDS ORDERED: ACETAMINOPHEN EXTENDED RELEASE 650 MG TABLET PO PRN (11:15)
[2020-08-18] MEDS ORDERED: ALPRAZOLAM 1 MG TAB PO PRN (11:15)
[2020-08-18] MEDS ORDERED: POLYETHYLENE GLYCOL 3350 17 GM POWD.PACK PO PRN (11:15)
[2020-08-18] MEDS ORDERED: ONDANSETRON 4 MG TABLET PO PRN (11:15)
[2020-08-18] MEDS ORDERED: FENTANYL 25 MCG TD SCH (11:15)
[2020-08-18] MEDS ORDERED: FENTANYL 25 MCG/HR PATCH TD SCH (11:30)
[2020-08-18] MEDS ORDERED: ACETAMINOPHEN 325 MG TAB PO PRN (13:45)
[2020-08-18] MEDS ORDERED: LORAZEPAM 0.5 MG TABLET PO PRN (16:45)
[2020-08-18] MEDS ORDERED: BUDESONIDE 0.5 MG/2 ML INH IH SCH (18:00)
[2020-08-18] MEDS ORDERED: FLUTICASONE/VILANTEROL 1 EACH BLST.W.DEV IH SCH (21:00)
[2020-08-18] MEDS ORDERED: BUPROPION HCL 150 MG TABLET.SA PO SCH (21:00)
[2020-08-18] MEDS ORDERED: AMITRIPTYLINE HCL 50 MG PO SCH (21:00)
[2020-08-18] MEDS ORDERED: ALBUTEROL INHALER 90MCG/INH IH SCH (21:00)
[2020-08-18] MEDS ORDERED: AMITRIPTYLINE HCL 25 MG TABLET PO SCH (21:00)
[2020-08-19] MEDS ORDERED: MULTIVITAMIN TABLET PO SCH (09:00)
[2020-08-19] MEDS ORDERED: NON-FORMULARY MEDICATION 1 EACH (Ferrous Sulfate 325 MG) PO SCH (09:00)
[2020-08-19] MEDS ORDERED: ISOSORBIDE MONO 30MG TAB SR PO SCH (09:00)
[2020-08-19] MEDS ORDERED: NON-FORMULARY MEDICATION 1 EACH (Multivitamin (Multi-Vitamin Daily) 1 EACH) PO SCH (09:00)
[2020-08-19] MEDS ORDERED: LOSARTAN 100 MG TABLET PO SCH (09:00)
[2020-08-19] MEDS ORDERED: FUROSEMIDE 20 MG TABLET PO SCH (09:00)
[2020-08-19] MEDS ORDERED: FERROUS SULFATE 325 MG TABLET.DR PO SCH (09:00)
== END 2020-08-18 21:21 ==
LOC: EDH 10:56 → EDHIP 14:11 → 4CH 08-17 01:47
PROVIDERS: ADMIT Internal Medicine; ATTEND Internal Medicine
DX: J96.21 Acute and chronic respiratory failure with hypoxia (principal); J44.9 Chronic obstructive pulmonary disease, unspecified; J18.1 Lobar pneumonia, unspecified organism; I25.10 Atherosclerotic heart disease of native coronary artery without angina pectoris; F32.9 Major depressive disorder, single episode, unspecified; I10 Essential (primary) hypertension; E03.9 Hypothyroidism, unspecified; G89.29 Other chronic pain; M54.9 Dorsalgia, unspecified; R64 Cachexia; F41.9 Anxiety disorder, unspecified; F13.90 Sedative, hypnotic, or anxiolytic use, unspecified, uncomplicated; Z99.89 Dependence on other enabling machines and devices; Z90.81 Acquired absence of spleen; Z79.01 Long term (current) use of anticoagulants; Z79.51 Long term (current) use of inhaled steroids; Z79.899 Other long term (current) drug therapy; Z88.5 Allergy status to narcotic agent; Z88.2 Allergy status to sulfonamides; Z88.8 Allergy status to other drugs, medicaments and biological substances
CPT/HCPCS: 36415 ×2; 36600; 70450; 71045; 74170; 80048; 80053; 80305; 81003; 82140; 82550 ×3; 82803; 82948 ×5; 83735; 83874 ×3; 84100; 84484 ×4; 85025 ×2; 85610; 85730; 87040 ×2; 93005; 94640 ×12; 94664; 96361 ×3; 96365; 96366 ×2; 97039 ×4; 97161; 97530; 99285; G0378 ×52; G8978; G8979; G8980; G8981; G8982; G8983; J0456; J0696; J1100; J2310; J2405; J2543 ×7; J3490 ×5; Q9967

== ENCOUNTER 2021-04-19 23:43 | Emergency (ER) | payer OTHER ==
[~2021-04-19] VITALS: Ht 185.4 cm; Wt 59.0 kg
[~2021-04-19 23:43] MED LIST changes: -ACET-3194 PO; -ALBUHFA IH; -ALPR1TAB2 PO; +ALPR1TAB7 PO; +AUD IH; -BENZ1LOZ83 MM; -FENT-77 TD; +FENT1PAT60 TP; -FERS325 PO; -FLUC200T8 PO; -FLUT1BLS IH; -FLUT1BLS9 IH; -FURO20TA4 PO; -ISOS30TA92 PO; -LEVO75CA5 PO; -LOSA100T58 PO; -MULT-1192 PO; -ONDA4TAB4 PO
[2021-04-20] MEDS ORDERED: LORAZEPAM 0.5 MG TABLET PO ONE ×2 (00:30→02:30)
[2021-04-20] MEDS ORDERED: LORAZEPAM 0.5 MG TABLET ONE ×2 (00:47→01:57)
[2021-04-20 00:51] LABS: BASOPHILS % (AUTO) 0.7 % (0.0-5.0); EOSINOPHILS % (AUTO) 0.3 % (0.0-8.0); HEMATOCRIT 51.6 % (42-54); LYMPHOCYTES % (AUTO) 11.8 % (21.0-51.0); MEAN CORPUSCULAR HEMOGLOBIN 29.8 pg (27.0-33.0); MEAN CORPUSCULAR HGB CONC 33.5 g/dL (32.0-36.0); MEAN CORPUSCULAR VOLUME 88.8 fL (79-99); MONOCYTES % (AUTO) 6.6 % (3.0-13.0); NEUTROPHILS % (AUTO) 80.2 % (40.0-77.0); PLATELET COUNT (AUTO) 359 K/uL (130-400); RED BLOOD CELL COUNT(AUTO) 5.81 MIL/uL (4.50-6.20); RED CELL DISTRIBUTION WIDTH 14.6 % (11.0-15.5); WHITE BLOOD COUNT (AUTO) 19.1 K/uL (4.8-10.8)
[2021-04-20 01:01] LABS: CREATININE 1.4 mg/dL (0.5-1.5); POTASSIUM 4.1 mmol/L (3.5-5.1)
[2021-04-20 01:06] LABS: ALBUMIN 4.2 g/dL (3.5-5.0); BILIRUBIN,TOTAL 1.5 mg/dL (0.2-1.0); TOTAL PROTEIN, SERUM 7.7 g/dL (6.0-8.3)
[2021-04-20] MEDS ORDERED: THIAMINE HCL 100 MG/ML 2ML VIAL IM SCH (02:30)
[2021-04-20 03:31] VITALS: BP 150/99
== END 2021-04-20 03:59 | disposition home or self-care (01) ==
LOC: EDH 23:51
DX: F41.9 Anxiety disorder, unspecified (principal); D72.829 Elevated white blood cell count, unspecified; Z88.2 Allergy status to sulfonamides; Z88.5 Allergy status to narcotic agent; Z79.899 Other long term (current) drug therapy; Z98.890 Other specified postprocedural states
CPT/HCPCS: 36415 ×2; 80053 ×2; 82948; 85025 ×2; 96360; 96372 ×2; 99283 ×2; J2060; J3411; J7030

== ENCOUNTER 2021-04-20 12:19 | Emergency (ER) | payer OTHER ==
[~2021-04-20] VITALS: Ht 185.4 cm; Wt 102.1 kg
[2021-04-20 12:40] LABS: BASOPHILS % (AUTO) 0.6 % (0.0-5.0); EOSINOPHILS % (AUTO) 0.1 % (0.0-8.0); HEMATOCRIT 50.3 % (42-54); LYMPHOCYTES % (AUTO) 16.6 % (21.0-51.0); MEAN CORPUSCULAR HEMOGLOBIN 29.4 pg (27.0-33.0); MEAN CORPUSCULAR HGB CONC 33.2 g/dL (32.0-36.0); MEAN CORPUSCULAR VOLUME 88.6 fL (79-99); MONOCYTES % (AUTO) 6.5 % (3.0-13.0); NEUTROPHILS % (AUTO) 75.9 % (40.0-77.0); PLATELET COUNT (AUTO) 355 K/uL (130-400); RED BLOOD CELL COUNT(AUTO) 5.68 MIL/uL (4.50-6.20); RED CELL DISTRIBUTION WIDTH 14.6 % (11.0-15.5); WHITE BLOOD COUNT (AUTO) 14.9 K/uL (4.8-10.8)
[2021-04-20 12:49] LABS: CARBON DIOXIDE 29 mmol/L (21-32); CHLORIDE 106 mmol/L (101-111); CREATININE 1.5 mg/dL (0.5-1.5); GLOMERULAR FILTR. RATE CALC 48 mL/min (>60); GLUCOSE,RANDOM 126 mg/dL (70-105); POTASSIUM 3.9 mmol/L (3.5-5.1); SODIUM SERUM 146 mmol/L (136-145); UREA NITROGEN, BLOOD 31 mg/dL (7-18)
[2021-04-20 12:53] LABS: ALANINE AMINOTRANSFERASE 27 U/L (12-78); ASPARTATE AMINOTRANSFERASE 18 U/L (10-37); BILIRUBIN,TOTAL 1.6 mg/dL (0.2-1.0); TOTAL PROTEIN, SERUM 7.5 g/dL (6.0-8.3)
[2021-04-20] MEDS ORDERED: LORAZEPAM 2 MG/ML 1 ML VIAL IM SCH (13:00)
[2021-04-20 13:03] LABS: ALCOHOL, BLOOD < 3 mg/dL (0-10)
[2021-04-20] MEDS ORDERED: 0.9%NACL 1000ML 1,000 ML IV ONE (13:30)
[2021-04-20] MEDS ORDERED: ALPRAZOLAM 1 MG TAB PO ONE (16:30)
[2021-04-20 18:38] VITALS: BP 142/84
== END 2021-04-20 19:06 | disposition home or self-care (01) ==
LOC: EDH 12:19
DX: F13.20 Sedative, hypnotic or anxiolytic dependence, uncomplicated (principal); I10 Essential (primary) hypertension; Z88.2 Allergy status to sulfonamides; Z88.5 Allergy status to narcotic agent; Z88.6 Allergy status to analgesic agent; Z79.899 Other long term (current) drug therapy
CPT/HCPCS: 36415; 80053; 82948; 85025; 96360; 96372; 99283; J2060; J7030

== ENCOUNTER 2022-08-31 11:22 | Emergency (ER) | payer OTHER ==
[~2022-08-31] VITALS: Ht 185.4 cm; Wt 72.6 kg
[~2022-08-31 11:22] MED LIST changes: +ACET500P24 PO; -AMOX-429 PO; -AUD IH; +AZIT500T4 PO; +BENZ-226 PO; +BUDE10.2 IH; -BUPR-317 PO; +CHOL2000 PO; +DOCU-116 PO; +DOXY100T2 PO; +FAMO20TA8 PO; -FENT1PAT60 TP; -HYDR-4068 PO; +PRED20TA3 PO; +VERA40TA5 PO
[2022-08-31 12:29] LABS: BASOPHILS % (AUTO) 0.6 % (0.0-5.0); EOSINOPHILS % (AUTO) 1.3 % (0.0-8.0); HEMATOCRIT 41.9 % (42-54); LYMPHOCYTES % (AUTO) 9.9 % (21.0-51.0); MEAN CORPUSCULAR HEMOGLOBIN 29.8 pg (27.0-33.0); MEAN CORPUSCULAR HGB CONC 32.5 g/dL (32.0-36.0); MEAN CORPUSCULAR VOLUME 91.9 fL (79-99); MONOCYTES % (AUTO) 7.8 % (3.0-13.0); PLATELET COUNT (AUTO) 371 K/uL (130-400); RED BLOOD CELL COUNT(AUTO) 4.56 MIL/uL (4.50-6.20); RED CELL DISTRIBUTION WIDTH 15.9 % (11.0-15.5); WHITE BLOOD COUNT (AUTO) 16.1 K/uL (4.8-10.8)
[2022-08-31 12:41] LABS: CREATININE 1.6 mg/dL (0.5-1.5); POTASSIUM 3.5 mmol/L (3.5-5.1)
[2022-08-31 12:45] LABS: ALBUMIN 2.5 g/dL (3.5-5.0); TOTAL PROTEIN, SERUM 5.1 g/dL (6.0-8.3)
[2022-08-31] MEDS ORDERED: DEXAMETHASONE 4 MG TAB ONE (15:07)
[2022-08-31] MEDS ORDERED: DEXAMETHASONE 4 MG TAB PO SCH (15:30)
[2022-08-31] MEDS ORDERED: MOLN200C PO (15:45)
[2022-08-31 15:53] VITALS: BP 116/65
== END 2022-08-31 16:05 | disposition home or self-care (01) ==
LOC: EDH 11:22
DX: U07.1 COVID-19 (principal); R06.02 Shortness of breath; J44.9 Chronic obstructive pulmonary disease, unspecified; Z88.2 Allergy status to sulfonamides; Z88.5 Allergy status to narcotic agent; Z88.8 Allergy status to other drugs, medicaments and biological substances; Z90.49 Acquired absence of other specified parts of digestive tract; Z98.890 Other specified postprocedural states
CPT/HCPCS: 99285; 71045; 87635; 84484; 80053; 83880; 85025; 87804 ×2; 36415; 93005; C9803; J8540